=== PATIENT | female | born 1955 | race Caucasian/White ===

== ENCOUNTER 2016-06-21 14:10 | Inpatient (IN) | payer OTHER, MEDICAID ==
[2016-06-21] MEDS ORDERED: FUROSEMIDE 100 MG/10 ML VIAL IVP ONE (14:41)
[2016-06-21 14:42] LABS: % IMMATURE GRANULYOCYTES 0.7 % (0.0-1.1); ABSOLUTE IMMATURE GRANULOCYTES 0.06 10^3/uL (0.00-0.10); ADD DIFF? NO; ADD MORPH? NO; ADD SCAN? NO; ATYPICAL LYMPHOCYTE FLAG 0 (0-99); FRAGMENT RBC FLAG 0 (0-99); HEMATOCRIT 39.2 % (38.0-47.0); HEMOGLOBIN 12.8 g/dL (12.6-16.3); LEFT SHIFT FLG 0 (0-99); LIPEMIA HEMOLYSIS FLAG 80 (0-99); MEAN CELL HEMOGLOBIN 29.9 pg (27.9-34.1); MEAN CELL HEMOGLOBIN CONCENTR. 32.7 g/dL (32.4-36.7); MEAN CELL VOLUME 91.6 fL (81.5-99.8); PLATELET CLUMPS FLAG 0 (0-99); PLATELET COUNT 289 10^3/uL (150-400); RED BLOOD CELL COUNT 4.28 10^6/uL (4.18-5.33); RED CELL DISTRIBUTION WIDTH 15.7 % (11.5-15.2)
--- NOTE | 2016-06-21 14:43 | EDPHY ---
H & P Stated Complaint: 10lb wt gain, sob, hx CHF Time Seen by Provider: 06/21/16 14:32 - Personal History Current Tetanus Diphtheria and Acellular Pertussis (TDAP): Yes Tetanus Vaccine Date: 09/2013 - Medical/Surgical History Hx Asthma: Yes Hx Chronic Respiratory Disease: No Hx Diabetes: Yes Hx Cardiac Disease: Yes Hx Renal Disease: No Hx Cirrhosis: No Hx Alcoholism: No Hx HIV/AIDS: No Hx Splenectomy or Spleen Trauma: No Other PMH: Diabetes, Asthma, pulmonary hypertension. ,2 strokes age 38 and 44, lupus antigen that causes blood thickening (thought to have caused the strokes) , gluten intolerance, frequent falls - Social History Smoking Status: Never smoked Constitutional: Initial Vital Signs Temperature (C) 37.2 C 06/21/16 14:17 Heart Rate 81 06/21/16 14:17 Respiratory Rate 20 06/21/16 14:17 Blood Pressure 138/69 H 06/21/16 14:17 O2 Sat (%) 94 06/21/16 14:17 O2 Delivery Mode Nasal Cannula O2 (L/minute) 2 Allergies/Adverse Reactions: erythromycin base [Erythromycin Base] Allergy (Intermediate, Verified 06/21/16 14:20) Rash Penicillins Allergy (Intermediate, Verified 02/25/15 13:36) Rash Sulfa (Sulfonamide Antibiotics) [Sulfa(Sulfonamide Antibiotics)] Allergy ( Intermediate, Verified 02/25/15 13:36) Rash pineapple [Pineapple] Allergy (Verified 02/25/15 13:36) most abx except 3rd gen. cephlaspor Allergy (Intermediate, Uncoded 02/25/15 13: 36) narcotics Allergy (Uncoded 02/25/15 13:36) make her angry Medical Decision Making ED Course/Re-evaluation: CHIEF COMPLAINT: Shortness of breath, weight gain. HISTORY OF PRESENT ILLNESS: The patient is a 60-year-old female with a history of CHF who presents from her line walker for weight gain and shortness of breath. Her shortness of breath has been worsening over past few months and she now has to use more oxygen when now at rest. She has gained 10 pounds in the past 2 weeks. She denies chest pain or other complaints. She has been compliant with her Lasix 80mg BID and Spironolactone 25mg BID. She had a recent echocardiogram that was normal. She has no other complaints at this time. REVIEW OF SYSTEMS: A 10 point review of systems was performed and is negative with the exception of the elements mentioned in the history of present illness. PHYSICAL EXAM: HR, BP, O2 Sat, RR. Temp noted General Appearance: Alert, well hydrated, appropriate, and non-toxic appearing. Head: Atraumatic without scalp tenderness or obvious injury Eyes: Pupils equal, round, reactive to light and accommodation, EOMI, no trauma , no injection. Ears: Clear bilaterally, no perforation, normal landmarks Nose: Atraumatic, no rhinorrhea, clear. Throat: There is no erythema or exudates, no lesions, normal tonsils, mucus membranes moist. Neck: Supple, 2+ carotid upstroke, nontender, no lymphadenopathy. Respiratory: No retractions, no distress, no wheezes, and no accessory muscle use. Lungs are clear to auscultation bilaterally. Cardiovascular: Regular rate and rhythm, no murmurs, rubs, or gallops. Bilateral carotid, radial, dorsalis pedis, and posterior tibial pulses intact. Good capillary refill all extremities. Gastrointestinal: Abdomen is soft, nontender, non-distended, no masses, no rebound, no guarding, no peritoneal signs. Musculoskeletal: Normal active ROM of all extremities, atraumatic. Chronic venous stasis changes of legs. Neurological: Alert, appropriate, and interactive. The patient has normal DTRs and non-focal cranial nerves, motor, sensory, and cerebellar exam. Skin: No rashes, good turgor, no nodules on palpation. Past medical history: Diabetes, asthma, pulmonary hypertension, CHF, 2 CVAs. Past surgical history: Denies. Family history: N/A. Social history: Here alone. DIAGNOSTICS/PROCEDURES/CRITICAL CARE TIME: I reviewed the patient's imaging studies independently on the PACS system. My interpretation: CHF and cardiomegaly. See "Imaging" section above for radiologist reports. The 12 lead EKG was interpreted by myself. See hard copy and/or "tracemaster" electronic copy for interpretation. Sinus rhythm. DIFFERENTIAL DIAGNOSIS: The differential diagnosis for the patient's shortness of breath and hypoxemia included but was not limited to pneumonia, myocardial infarction, acute mountain sickness, high altitude pulmonary edema, congestive heart failure, and pulmonary embolus. MEDICAL DECISION MAKIN-year-old female with a history of CHF presents with recently worsening shortness of breath and 10 pound weight gain over the past 2 weeks. Specifically , over the past couple of days she has had worsening shortness of breath while lying flat. She has been compliant with her Lasix and Spironolactone, however her history of past kidney failure secondary to sepsis could be reducing the effectiveness of this. She has been hospitalized for this before and reports that IV Lasix caused her to lose 51 pounds over 3 days. The patient has been placed on a Nitroglycerin drip and 80mg IV Lasix administered. Hopefully this combination will allow her to pass her fluid well. Hospitalist paged. Chest x- ray ordered. Her blood pressure is 134/69 on arrival. I consulted with Dr. Angel , cardiology, who recommends Lasix drip. 1500: Consulted with Dr. Stern, hospitalist. She accepts admission. - Data Points Laboratory Results: Laboratory Results 06/21/16 14:23 06/21/16 14:23 06/21/16 06/21/16 06/21/16 14:30 14:23 14:23 WBC 8.93 10^3/uL 10^3/uL (3.80-9.50) RBC 4.28 10^6/uL 10^6/uL (4.18-5.33) Hgb 12.8 g/dL g/dL (12.6-16.3) Hct 39.2 % % (38.0-47.0) MCV 91.6 fL fL (81.5-99.8) MCH 29.9 pg pg (27.9-34.1) MCHC 32.7 g/dL g/dL (32.4-36.7) RDW 15.7 % H % (11.5-15.2) Plt Count 289 10^3/uL 10^3/uL (150-400) MPV 10.0 fL fL (8.7-11.7) Neut % (Auto) 72.2 % % (39.3-74.2) Lymph % (Auto) 17.4 % % (15.0-45.0) Glades % (Auto) 8.7 % % (4.5-13.0) Eos % (Auto) 0.9 % % (0.6-7.6) Baso % (Auto) 0.1 % L % (0.3-1.7) Nucleat RBC Rel Count 0.0 % % (0.0-0.2) Absolute Neuts (auto) 6.45 10^3/uL 10^3/uL (1.70-6.50) Absolute Lymphs (auto) 1.55 10^3/uL 10^3/uL (1.00-3.00) Absolute Monos (auto) 0.78 10^3/uL 10^3/uL (0.30-0.80) Absolute Eos (auto) 0.08 10^3/uL 10^3/uL (0.03-0.40) Absolute Basos (auto) 0.01 10^3/uL L 10^3/uL (0.02-0.10) Absolute Nucleated RBC 0.00 10^3/uL 10^3/uL (0-0.01) Immature Gran % 0.7 % % (0.0-1.1) Immature Gran # 0.06 10^3/uL 10^3/uL (0.00-0.10) PT 35.1 SEC H SEC (12.0-15.0) INR 3.43 H (0.83-1.16) Sodium 138 mEq/L mEq/L (134-144) Potassium 4.6 mEq/L mEq/L (3.5-5.2) Chloride 99 mEq/L mEq/L (97-110) Carbon Dioxide 25 mEq/l mEq/l (22-31) Anion Gap 14 mEq/L mEq/L (8-16) BUN 43 mg/dL H mg/dL (7-23) Creatinine 1.2 mg/dL H mg/dL (0.6-1.0) Estimated GFR 46 Glucose 257 mg/dL H mg/dL (70-100) Calcium 9.5 mg/dL mg/dL (8.5-10.4) Magnesium 2.0 mg/dL mg/dL (1.6-2.3) Total Bilirubin 0.7 mg/dL mg/dL (0.1-1.4) Conjugated Bilirubin 0.6 mg/dL H mg/dL (0.0-0.5) Unconjugated Bilirubin 0.1 mg/dL mg/dL (0.0-1.1) AST 32 IU/L IU/L (14-46) ALT 34 IU/L IU/L (9-52) Alkaline Phosphatase 89 IU/L IU/L (38-126) Troponin I < 0.012 ng/mL ng/mL (0-0.034) NT-Pro-B Natriuret Pep 102 pg/mL pg/mL (0-125) Total Protein 8.4 g/dL H g/dL (6.3-8.2) Albumin 4.3 g/dL g/dL (3.5-5.0) Lipase 148.0 IU/L IU/L (23-300) Medications Given: Discontinued Medications Furosemide (Lasix Injection) 80 mg IVP EDNOW ONE Stop: 06/21/16 14:42 Last Admin: 06/21/16 15:05 Dose: 80 mg Departure - Departure Disposition: [facility] Inpatient Acute Clinical Impression: Cardiomegaly CHF (congestive heart failure) Qualifiers: Congestive heart failure type: unspecified congestive heart failure type Congestive heart failure chronicity: chronic Qualified Code(s): I50.9 - Heart failure, unspecified Condition: Fair Report Scribed for: Jaime Nam Report Scribed by: Topher Brandon Date of Report: 06/21/16 Time of Report: 14:44
--- NOTE | 2016-06-21 14:52 | CPEKG ---
Heart Rate: 84 RR Interval: 714 P-R Interval: 192 QRSD Interval: 86 QT Interval: 364 QTC Interval: 431 P Toutle: 56 QRS Toutle: 21 T Wave Toutle: 57 EKG Severity - NORMAL ECG - EKG Impression: SINUS RHYTHM Electronically Signed By: Bro Duque 22-Jun-2016 08:59:39
[2016-06-21] MEDS ORDERED: NITROGLYCERIN/DEXTROSE 250 ML IV SCH (15:00)
[2016-06-21 15:10] LABS: ALANINE AMINOTRANSFERASE 34 IU/L (9-52); ALBUMIN 4.3 g/dL (3.5-5.0); ALKALINE PHOSPHATASE 89 IU/L (38-126); ANION GAP 14 mEq/L (8-16); ASPARTATE AMINOTRANSFERASE 32 IU/L (14-46); BILIRUBIN,TOTAL 0.7 mg/dL (0.1-1.4); BILIRUBIN-CONJUGATED 0.6 mg/dL (0.0-0.5); BILIRUBIN-UNCONJUGATED 0.1 mg/dL (0.0-1.1); CALCIUM 9.5 mg/dL (8.5-10.4); CARBON DIOXIDE 25 mEq/l (22-31); CHLORIDE 99 mEq/L (97-110); CREATININE 1.2 mg/dL (0.6-1.0); GLOMERULAR FILTRATION RATE 46; GLUCOSE 257 mg/dL (70-100); POTASSIUM 4.6 mEq/L (3.5-5.2); SODIUM 138 mEq/L (134-144); TOTAL PROTEIN 8.4 g/dL (6.3-8.2)
[2016-06-21] MEDS ORDERED: ONDANSETRON DISINTEGRATING 4 MG TAB PO PRN (15:21)
[2016-06-21] MEDS ORDERED: ONDANSETRON 4 MG/2 ML VIAL IVP PRN (15:21)
[2016-06-21 15:22] LABS: TROPONIN I < 0.012 ng/mL (0-0.034)
[2016-06-21 15:36] LABS: INR 3.43 (0.83-1.16); PROTIME(PATIENT) 35.1 SEC (12.0-15.0)
[2016-06-21] MEDS ORDERED: D5W IV SCH (16:00)
[2016-06-21] MEDS ORDERED: FUROSEMIDE IV SCH (16:00)
[2016-06-21] MEDS ORDERED: ALTEPLASE 2 MG VIAL IVP PRN (16:07)
[2016-06-21] MEDS ORDERED: D50W 25 GM/50 ML SYR IVP PRN (16:08)
[2016-06-21] MEDS ORDERED: IBUPROFEN 200 MG TAB PO PRN (16:17)
[2016-06-21] MEDS ORDERED: FUROSEMIDE 100 MG in D5W 100 ML IV SCH (17:00)
[2016-06-21] MEDS ORDERED: CEPHALEXIN 500 MG CAP PO PRN (17:21)
--- NOTE | 2016-06-21 17:28 | GHP ---
[f rep st] HISTORY AND PHYSICAL DATE OF ADMISSION: 06/21/2016 CHIEF COMPLAINT: Acutely decompensated diastolic heart failure. HISTORY OF PRESENT ILLNESS: Patient is a 60-year-old female with morbid obesity , diastolic heart failure, HEIDI who is admitted from [facility] for volume overload. The patient has gained over 60 pounds in the past 6 months; her dry weight is 310 pounds. She reports increased swelling in her legs and abdomen. Along with that, she has had left-sided chest pressure with a little bit of pain that occurs more with exertion. There is no associated radiation, sweats or nausea with this pressure. She has had to have increase of her oxygen at home. She normally uses 1 L at rest and 2 to 3 with exertion, has PND. Has chronically slept in a lounge chair due to orthopnea for the past year. Has not been compliant with her CPAP due to a nose sore. She had 2 open wounds on her right lower extremity recently that she has been dressing on her own. Denies fevers, chills or sweats. Echocardiogram 06/02 demonstrated normal LVEF. Lexiscan was negative for ischemia at that time as well. REVIEW OF SYSTEMS: I completed a 10-point review of systems, negative except as noted in HPI. PAST MEDICAL HISTORY: 1. History of positive lupus anticoagulant. 2. Stroke x2. 3. Arterial thrombosis. 4. Diabetes type 2. 5. Morbid obesity. 6. Paroxysmal atrial fibrillation. 7. Hyperlipidemia. 8. Hypertension. 9. HEIDI, has not been wearing CPAP. 10. Chronic hypoxemic respiratory failure 1 L at rest, 2 to 3 with exertion. 11. Trace MR, Trace TR. PAST SURGICAL HISTORY: 1. Tonsillectomy. 2. Appendectomy. 3. Gallbladder. SOCIAL HISTORY: 1. Lives in [place] with her who has a TBI and is disabled secondary to a car accident. 2. Has several daughters, youngest with cerebral palsy. 3. She uses a walker at home. FAMILY HISTORY: Mother passed of a mouth cancer. Paternal grandmother had an MT age 40 and a CABG in her 60s. Father with heart disease. MEDICATIONS: 1. Ibuprofen as needed. 2. Tylenol as needed. 3. Diltiazem 180 mg daily. 4. Keflex. 5. Aldactone 25 mg twice daily. 6. Losartan 100 mg daily. 7. Coumadin 7.5 on Wednesdays and 5 every other day. 8. Zyprexa 7.5 mg at bedtime. 9. Vitamin D3. 10. Paroxetine 40 mg daily. 11. Prilosec 20 mg daily. 12. Neurontin 300 mg three times daily. 13. Regular insulin 110 units twice daily. 14. Lasix 80 mg twice daily. PHYSICAL EXAMINATION: VITAL SIGNS: Temperature 37.2, Blood pressure 136/69, heart rate 80s, respiration 20, 94% on 2 L. GENERAL: Patient is morbidly obese , lying in bed, in no acute distress. HEENT: PERRLA, EOMI, oropharynx clear. CV: Regular rate and rhythm. No murmurs, gallops, or rubs. Anasarca lower extremities and abdomen. Difficult to discern JVD with thick neck. LUNGS: Mild crackles at bases. ABDOMEN: Distended, but nontender. Positive bowel sounds. : No suprapubic tenderness. MUSCULOSKELETAL: Moving all 4 extremities. SKIN: Warm and dry. Right lower extremity with 2 open wounds, one 3 x 4 cm, the other 1 x 2 cm with mild purulence, no surrounding erythema. NEURO: 2 through 12 intact. PSYCH: Alert and oriented x3. Very pleasant. LABORATORY DATA: Sodium 138, potassium 4.2, chloride 99, carbon dioxide 25, BUN 43, creatinine 1.2. Baseline is 1.1 to 1.3. Calcium 9.5, sugar is 257, conjugated bilirubin 0.6, unconjugated 0.1, troponin less than 0.012. BNP is 102, total protein 8.4. INR is 3.43, PT is 35. EKG personally reviewed by me. Normal sinus rhythm. Chest x-ray personally reviewed by me. Blunted costophrenic angles bilaterally. ASSESSMENT AND PLAN: 1. Acute on chronic diastolic heart failure: evaluated by Dr. Ndiaye in clinic today. Start a Lasix drip and admit to the PCU. Continue spironolactone and losartan. Daily weights and strict I's and O's. 2 L fluid restriction. Will likely cath in the next 4 to 5 days when more euvolemic. 2. Chronic hypoxemic respiratory failure: Secondary to obstructive sleep apnea. She is at her baseline right now. 3. Obstructive sleep apnea. Will write for CPAP. 4. Uncontrolled diabetes. Will continue her home insulin and add sliding scale insulin here. 5. Positive lupus anticoagulant: Prior strokes and arterial thrombosis. INR is at goal. Will bridge with Lovenox and hold Coumadin for likely catheterization in the next few days. 6. Hyperlipidemia, continue statin. 7. Paroxysmal atrial fibrillation, is currently in normal sinus rhythm. CHADS- VASc score greater than 6 on Coumadin. 8. Benign hypertension. Continue home medications. 9. Right lower extremity wounds, afebrile, no leukocytosis. We will have Wound Care evaluate. 10. Diet: Cardiac, 2 L fluid restriction. 11. Deep venous thrombosis prophylaxis on Coumadin. DISPOSITION: Patient warrants inpatient admission given acutely decompensated heart failure warrenting IV Lasix drip and serial labs. /[id number]/MODL MTDD
[2016-06-21] MEDS: INSULIN LISPRO 100 UNIT/ML SC SCH (17:57)
[2016-06-21] MEDS: INSULIN REGULAR HUMAN 100 UNIT/ML SC SCH (17:58)
[2016-06-21] MEDS ORDERED: INSULIN REGULAR HUMAN 110 UNIT SQ SCH (18:00)
[2016-06-21] MEDS: FUROSEMIDE 100 MG in D5W 100 ML IV SCH ×2 (18:09→21:21)
[2016-06-21] MEDS: PANTOPRAZOLE SODIUM 40 MG TAB PO SCH (20:55)
[2016-06-21] MEDS: OLANZapine 2.5 MG TAB PO SCH (20:55)
[2016-06-21] MEDS: CEPHALEXIN 500 MG CAP PO SCH (20:55)
[2016-06-21] MEDS: SPIRONOLACTONE 25 MG TAB PO SCH (20:55)
[2016-06-21] MEDS: ENOXAPARIN 80 MG/0.8 ML SYR SC SCH (20:56)
[2016-06-21] MEDS: ENOXAPARIN 100 MG/ML SYR SC SCH (20:56)
[2016-06-21] MEDS ORDERED: NON-FORMULARY NEW DRUG (Omeprazole [Prilosec 20 Mg] 20 MG) PO SCH (21:00)
[2016-06-21] MEDS ORDERED: ENOXAPARIN 150 MG/ML SYR SC SCH (21:00)
[2016-06-21] MEDS: GABAPENTIN 300 MG CAP PO SCH (21:03)
[2016-06-22] MEDS: FUROSEMIDE 100 MG in D5W 100 ML IV SCH ×6 (02:40→21:50)
[2016-06-22 06:27] LABS: INR 3.31 (0.83-1.16); PROTIME(PATIENT) 34.1 SEC (12.0-15.0)
[2016-06-22 07:53] LABS: ANION GAP 12 mEq/L (8-16); CALCIUM 9.3 mg/dL (8.5-10.4); CARBON DIOXIDE 28 mEq/l (22-31); CHLORIDE 99 mEq/L (97-110); CREATININE 1.1 mg/dL (0.6-1.0); GLOMERULAR FILTRATION RATE 50; GLUCOSE 228 mg/dL (70-100); POTASSIUM 4.1 mEq/L (3.5-5.2); SODIUM 139 mEq/L (134-144)
[2016-06-22] MEDS ORDERED: Herbals/Supplements -Info Only PO SCH (09:00)
[2016-06-22] MEDS: CEPHALEXIN 500 MG CAP PO SCH ×2 (09:05→20:14)
[2016-06-22] MEDS: DILTIAZEM CD 180 MG CAP PO SCH (09:05)
[2016-06-22] MEDS: GABAPENTIN 300 MG CAP PO SCH ×3 (09:05→20:14)
[2016-06-22] MEDS: SPIRONOLACTONE 25 MG TAB PO SCH ×2 (09:05→20:13)
[2016-06-22] MEDS: PARoxetine HCL 20 MG TAB PO SCH (09:06)
[2016-06-22] MEDS: ENOXAPARIN 100 MG/ML SYR SC SCH ×2 (09:06→20:20)
[2016-06-22] MEDS: LOSARTAN POTASSIUM 50 MG TAB PO SCH (09:06)
[2016-06-22] MEDS: CHOLECALCIFEROL VIT D3 1,000 UNITS TAB PO SCH (09:06)
[2016-06-22] MEDS: INSULIN REGULAR HUMAN 100 UNIT/ML SC SCH ×2 (09:07→18:05)
[2016-06-22] MEDS: ENOXAPARIN 80 MG/0.8 ML SYR SC SCH ×2 (09:07→20:21)
[2016-06-22] MEDS: INSULIN LISPRO 100 UNIT/ML SC SCH ×3 (09:07→18:05)
--- NOTE | 2016-06-22 09:27 | SOAPPROG ---
SOAP Progress Note Assessment/Plan: Assessment: 60 y/o woman with chronic morbid obesity and acute on chronic diastolic CHF mostly RV related. No more CP. PLAN: 1)increase Lasix gtt to 30mg/hr. 2)Diuril 500mg IV x one today. 3)rest of meds without changes. 4)Probably L/R cardiac cath sunday or Sunday via right arm once diuresed down to 310-320lbs. 5)daily BMP 6)thanks. 06/22/16 09:23 Subjective: feels okay. Still short of breath at rest. No more CP. Mild dizziness. No fevers or chills. Objective: Vital Signs Temp Pulse Resp BP Pulse Ox 37.3 C 79 12 145/66 H 94 06/22/16 08:56 06/22/16 08:56 06/22/16 08:56 06/22/16 08:56 06/22/16 08:56 Laboratory Results 06/22/16 06:10 06/21/16 06/22/16 06/23/16 05:59 05:59 05:59 Intake Total 1300 Output Total 3100 1800 Balance -1800 -1800 PT 34.1 SEC (12.0-15.0) H 06/22/16 06:10 INR 3.31 (0.83-1.16) H 06/22/16 06:10 Physical Exam - Physical Exam General Appearance: obese EENT: PERRL/EOMI Neck: non-tender Respiratory: crackles (bibasilar) Cardiac/Chest: regular rate, rhythm, JVD, systolic murmur Abdomen: organomegaly, ascites (probable ascites.) Skin: warm/dry Extremities: pedal edema, swelling Neuro/Psych: alert ICD10 Worksheet Patient Problems: Problems Problem Status Onset CHF (congestive heart failure) Acute Cardiomegaly Acute Afib - Atrial fibrillation Acute CHF (congestive heart failure) Acute Chest pain Acute
[2016-06-22] MEDS: STERILE WATER IVP SCH (10:56)
[2016-06-22] MEDS: CHLOROTHIAZIDE SODIUM IVP SCH (10:56)
--- NOTE | 2016-06-22 11:01 | HOSPPROG ---
Hospitalist Progress Note Assessment/Plan: # acute CHF, diastolic, mostly R sided sx - lasix gtt per Dr Angel - warned of ototoxicity - diuril per Dr Angel; cont aldactone - L/R cath when more euvolemic - cont losartan # lupus anticoagulant, hx arterial thrombosis - on warfarin - lovenox as bridge to cath, hold warfarin for now # DM2 - high insulin doses - glucs labile, follow for now without insulin changes # paroxysmal a-fib: sinus now; AC as above, dilt # HEIDI - CPAP # morbid obseity # FCFT ## chart reviewed CXR personally reviewed Subjective: breathing feels better; no hearing loss Objective: Vital Signs Temp Pulse Resp BP Pulse Ox 37.3 C 79 12 145/66 H 94 06/22/16 08:56 06/22/16 08:56 06/22/16 08:56 06/22/16 08:56 06/22/16 08:56 Laboratory Results 06/22/16 06:10 06/21/16 06/22/16 06/23/16 05:59 05:59 05:59 Intake Total 1300 Output Total 3100 2500 Balance -1800 -2500 PT 34.1 SEC (12.0-15.0) H 06/22/16 06:10 INR 3.31 (0.83-1.16) H 06/22/16 06:10 - Physical Exam Constitutional: obese Cardiovascular: regular rate and rhythym, systolic murmur, No irregularly irregular Respiratory: no respiratory distress, no rales or rhonchi, clear to auscultation Gastrointestinal: normoactive bowel sounds, soft, non-tender abdomen, no palpable masses ICD10 Worksheet Patient Problems: Problems Problem Status Onset CHF (congestive heart failure) Acute Cardiomegaly Acute Afib - Atrial fibrillation Acute CHF (congestive heart failure) Acute Chest pain Acute
[2016-06-22] MEDS: ACETAMINOPHEN 325 MG TAB PO PRN (16:17)
--- NOTE | 2016-06-22 16:57 | WOCRNPDOC ---
WOCRN Advanced Assessment Note - Skin Integrity Problem, Advanced Assess Right Lower Leg Venous Stasis Ulcer Dressing Type: Layne, Non-Bordered Foam Dressing Description: Shadowed Exudate Amount: Minimal Exudate Color: Yellow Exudate Characteristic(s): Dried Integumentary Issue Intervention: Dressing Removed (Provided DIYA Goodwin with supplies and instructions for dressing placement.) Natalie Wound Tissue: Lipodermatosclerosis, Hemosiderin Staining, Venous Dermatitis , Xerotic, Ankle Flare, Hair Loss, Dystrophic Natalie Wound Swelling: Mild Wound Bed Color: Red Wound Bed Constitution: Granulation Tissue (100%) Wound Edges: Irregular, Scarred, Thick Site Odor: Slight, Musky Site Measurement - Head-to-Toe Length X Width X Depth (cm): 9 x 6 x 0.3 Skin Integrity Problem Comment: Hx /chronic VSU per patient report: Has received care in past from "[facility] and [facility];" and helps her with dressing changes "at home, when he feels well enough." Wound presents now with completely clean, moist granulating tissue across a shallow wound bed, in the context of extremely dry, hyperkeratotic skin across bilateral LEs and feet. Provided DIYA Goodwin with supplies and instructions for care. Will follow up on 06/29.
[2016-06-22] MEDS: PANTOPRAZOLE SODIUM 40 MG TAB PO SCH (20:13)
[2016-06-22] MEDS: OLANZapine 2.5 MG TAB PO SCH (20:14)
[2016-06-23] MEDS: FUROSEMIDE 100 MG in D5W 100 ML IV SCH ×5 (01:15→14:34)
[2016-06-23 05:16] LABS: HEMATOCRIT 36.6 % (38.0-47.0); HEMOGLOBIN 12.1 g/dL (12.6-16.3); MEAN CELL HEMOGLOBIN 30.4 pg (27.9-34.1); MEAN CELL HEMOGLOBIN CONCENTR. 33.1 g/dL (32.4-36.7); RED BLOOD CELL COUNT 3.98 10^6/uL (4.18-5.33); RED CELL DISTRIBUTION WIDTH 15.5 % (11.5-15.2)
[2016-06-23 05:30] LABS: ANION GAP 13 mEq/L (8-16); CALCIUM 9.5 mg/dL (8.5-10.4); CARBON DIOXIDE 28 mEq/l (22-31); CHLORIDE 94 mEq/L (97-110); CREATININE 1.3 mg/dL (0.6-1.0); GLOMERULAR FILTRATION RATE 42; GLUCOSE 226 mg/dL (70-100); POTASSIUM 3.8 mEq/L (3.5-5.2); SODIUM 135 mEq/L (134-144)
[2016-06-23 05:32] LABS: INR 2.27 (0.83-1.16); PROTIME(PATIENT) 25.2 SEC (12.0-15.0)
[2016-06-23] MEDS: CHOLECALCIFEROL VIT D3 1,000 UNITS TAB PO SCH (08:02)
[2016-06-23] MEDS: GABAPENTIN 300 MG CAP PO SCH ×3 (08:03→20:40)
[2016-06-23] MEDS: SPIRONOLACTONE 25 MG TAB PO SCH ×2 (08:03→20:39)
[2016-06-23] MEDS: LOSARTAN POTASSIUM 50 MG TAB PO SCH (08:03)
[2016-06-23] MEDS: CEPHALEXIN 500 MG CAP PO SCH ×2 (08:04→20:40)
[2016-06-23] MEDS: PARoxetine HCL 20 MG TAB PO SCH (08:04)
[2016-06-23] MEDS: ENOXAPARIN 80 MG/0.8 ML SYR SC SCH ×2 (08:04→08:33)
[2016-06-23] MEDS: ENOXAPARIN 100 MG/ML SYR SC SCH ×2 (08:05→08:32)
[2016-06-23] MEDS: DILTIAZEM CD 180 MG CAP PO SCH (08:48)
[2016-06-23] MEDS: INSULIN LISPRO 100 UNIT/ML SC SCH ×3 (08:49→18:22)
[2016-06-23] MEDS: INSULIN REGULAR HUMAN 100 UNIT/ML SC SCH ×2 (08:50→18:24)
[2016-06-23] MEDS: STERILE WATER IVP SCH (08:55)
[2016-06-23] MEDS: CHLOROTHIAZIDE SODIUM IVP SCH (08:55)
--- NOTE | 2016-06-23 09:31 | SOAPPROG ---
SOAP Progress Note Assessment/Plan: Assessment: 60 y/o woman with chronic morbid obesity and acute on chronic diastolic CHF mostly RV related. No more CP. Weight on admission around 370lbs now 354lb. Reportedly from patient her dry weight is 310-320lbs. PLAN: 1)continue Lasix gtt 1-2 more days as serum creatinine and HCO2 allow. 2)okay to stop high dose Lovenox and start on heparin gtt. 3)Tentatively schedule for Left and right heart cath Sunday with IV heparin off for 4 hours beforehand. 06/23/16 09:28 Subjective: feels better. CP is gone. Less total body swelling sensation. Walked to bathroom without near syncope. No new complaints. Objective: Vital Signs Temp Pulse Resp BP Pulse Ox 36.9 C 86 14 113/62 96 06/23/16 07:32 06/23/16 07:32 06/23/16 07:32 06/23/16 07:32 06/23/16 07:32 Laboratory Results 06/23/16 04:30 06/23/16 04:30 06/22/16 06/23/16 06/24/16 05:59 05:59 05:59 Intake Total 1300 991.8 Output Total 3100 6950 Balance -1800 -5958.2 PT 25.2 SEC (12.0-15.0) H D 06/23/16 04:30 INR 2.27 (0.83-1.16) H 06/23/16 04:30 Physical Exam - Physical Exam General Appearance: alert, obese EENT: normal ENT inspection Neck: non-tender Respiratory: lungs clear Cardiac/Chest: regular rate, rhythm, JVD, systolic murmur Peripheral Pulses: 1+: femoral (R), femoral (L), dorsalis-pedis (R), dorsalis- pedis (L), 2+: carotid (R), carotid (L) Abdomen: soft, distended, No guarding Skin: warm/dry Extremities: pedal edema Neuro/Psych: alert ICD10 Worksheet Patient Problems: Problems Problem Status Onset CHF (congestive heart failure) Acute Cardiomegaly Acute Afib - Atrial fibrillation Acute CHF (congestive heart failure) Acute Chest pain Acute
--- NOTE | 2016-06-23 10:24 | HOSPPROG ---
Hospitalist Progress Note Assessment/Plan: Tigist Quinn is a 60 y/o female w morbid obesity who presented with acute on chronic CHF. She was admitted to the hospital from [facility] for being fluid overloaded. Today is my first encounter with the patient/chart reviewed. # acute CHF, diastolic, mostly R sided sx - Lasix gtt per Dr Angel - (added K protocol) - Diuril per Dr Angel; cont Aldactone - cont losartan - to get a L/R cath likely on Sunday - will need heparin gtt held 4 hours prior to procedure - chest xray shows mod pulm venous htn # lupus anticoagulant, hx arterial thrombosis - take warfarin (on HOLD) - was being bridged w Lovenox - now on heparin gtt -INR is therapeutic @ 2.27 #hx of 2 strokes due to the above -no residual # renal insufficiency -she is getting diuresed with Lasix gtt (30 mg/hour) -will dc treatment dose of Lovenox and initiate heparin gtt # DM2 - high insulin doses - glucoses are elevated, follow for now without insulin changes -change to ADA diet/ cardiac diet # paroxysmal a-fib: sinus now; AC as above, diltiazem # HEIDI - CPAP # morbid obesity with a BMI of 55 #Plan: dc Lovenox, heparin gtt, change to ADA diet. Subjective: Tigist has no complaints/ overall feeling better since being admitted. Objective: Vital Signs Temp Pulse Resp BP Pulse Ox 36.9 C 86 14 113/62 96 06/23/16 07:32 06/23/16 07:32 06/23/16 07:32 06/23/16 07:32 06/23/16 07:32 Laboratory Results 06/23/16 04:30 06/23/16 04:30 06/22/16 06/23/16 06/24/16 05:59 05:59 05:59 Intake Total 1300 991.8 Output Total 3100 6950 1900 Balance -1800 -5958.2 -1900 PT 25.2 SEC (12.0-15.0) H D 06/23/16 04:30 INR 2.27 (0.83-1.16) H 06/23/16 04:30 - Physical Exam Constitutional: chronically ill appearing, obese Eyes: PERRL Ears, Nose, Mouth, Throat: hearing normal Cardiovascular: regular rate and rhythym (distant heart sounds), edema ( bilateral lower extremity edema, also noted in abdomen. ) Respiratory: no respiratory distress Gastrointestinal: normoactive bowel sounds Skin: warm, other (skin on left lower ext dry, scaley, right leg in manda wrap) Musculoskeletal: generalized weakness Neurologic: AAOx3 Psychiatric: interacting appropriately, not anxious ICD10 Worksheet Patient Problems: Problems Problem Status Onset CHF (congestive heart failure) Acute Cardiomegaly Acute Afib - Atrial fibrillation Acute CHF (congestive heart failure) Acute Chest pain Acute
[2016-06-23] MEDS: HEPARIN/DEXTROSE 500 ML IV SCH (13:13)
[2016-06-23] MEDS: HEPARIN 10,000 UNIT/10 ML MDV IVP PRN (13:13)
[2016-06-23] MEDS ORDERED: PROTOCOL POTASSIUM 1 DOSE MISC PRN (16:21)
[2016-06-23] MEDS ORDERED: D5W IV SCH (16:30)
[2016-06-23] MEDS ORDERED: FUROSEMIDE IV SCH (16:30)
[2016-06-23] MEDS: ACETAMINOPHEN 325 MG TAB PO PRN (17:20)
[2016-06-23] MEDS: FUROSEMIDE IV SCH (17:25)
[2016-06-23] MEDS: D5W IV SCH (17:25)
[2016-06-23 19:35] LABS: POTASSIUM 3.8 mEq/L (3.5-5.2)
[2016-06-23] MEDS: OLANZapine 2.5 MG TAB PO SCH (20:39)
[2016-06-23] MEDS: PANTOPRAZOLE SODIUM 40 MG TAB PO SCH (20:39)
[2016-06-23] MEDS ORDERED: POTASSIUM CL 10 MEQ TAB PO ONE (20:43)
[2016-06-24] MEDS: FUROSEMIDE IV SCH ×2 (01:42→18:26)
[2016-06-24] MEDS: D5W IV SCH ×2 (01:42→18:26)
[2016-06-24] MEDS: HEPARIN/DEXTROSE 500 ML IV SCH ×2 (05:40→20:10)
[2016-06-24] MEDS: ACETAMINOPHEN 325 MG TAB PO PRN ×2 (05:40→21:14)
[2016-06-24 06:00] LABS: INR 1.58 (0.83-1.16); PROTIME(PATIENT) 18.9 SEC (12.0-15.0)
[2016-06-24 06:15] LABS: ANION GAP 15 mEq/L (8-16); CALCIUM 9.3 mg/dL (8.5-10.4); CARBON DIOXIDE 30 mEq/l (22-31); CHLORIDE 87 mEq/L (97-110); CREATININE 1.5 mg/dL (0.6-1.0); GLOMERULAR FILTRATION RATE 35; GLUCOSE 241 mg/dL (70-100); POTASSIUM 3.8 mEq/L (3.5-5.2); SODIUM 132 mEq/L (134-144)
--- NOTE | 2016-06-24 08:44 | PDCARPN ---
Cardiology Progress Note Chief Complaint: Patient reports continue feeling "puffy", but improved shortness of breath. Assessment/Plan: Assessment: 60-year-old female morbid obesity diastolic heart (mostly RV related), history of arterial thrombosis, history CVA, DM type 2, PAF, and HEIDI. Admitted on 2016 for 60 lb weight gain in last 6 months. Has been diuresed continuous Lasix drip and chlorthiazide. Admission weight 166.8 kilos, today 160 kilos. Today's lab showed of hyponatremia sodium at 132. Decreasing chloride level of 87, and elevation of BUN at 60 and creatinine 1.5. Telemetry monitoring showing sinus rhythm with no arrhythmias or pauses. Patient reports improvement in shortness breath. Denies of any chest pressure or pain. Plan: 1. Chronic diastolic heart failure: With elevation BUN creatinine, and mild hyponatremia. Will discontinue IV chlorthiazide, will also decrease Lasix trip rate down to 20 mg/hr. Continue oral Aldactone. Patient on potassium protocol. Repeat BMP and BNP in a.m.. Daily weights, strict I&Os. Plan on right and left heart catheterization Sunday. 2. PAF: Currently in a sinus rhythm. Continue on diltiazem p.o.. Taken off of warfarin therapy in preparation for cardiac catheterization, currently on heparin drip. Plan on discontinuing heparin 4 hours before cardiac catheterization. 3. Hyponatremia: Fluid restriction, DC chlorthiazide 06/24/16 08:42 Subjective: Patient reports no chest pressure, improvement in shortness of breath, denies of any palpitations, lightheadedness, near-syncope or syncopal events. Reports ongoing feeling of fluid retention. Reviewed/Discussed With: other (Dr Nowak) Objective: Vital Signs (8 Hrs) Temp Pulse Resp BP Pulse Ox 06/24/16 07:42 36.4 C 85 12 128/64 H 92 06/24/16 04:00 37.1 C 72 9 L 130/54 H 94 Intake/Output (24 Hrs) 06/23/16 06/24/16 06/25/16 05:59 05:59 05:59 Intake Total 991.8 2385 Output Total 6950 4100 700 Balance -5958.2 -4146 -700 Intake: Oral (ml) 725 1725 IV Infused (ml) 266.8 660 Furosemide 100 mg In D5w 30.8 100 ml @ 20 mls/hr IV CONT CRISTA Rx#:[id number] Furosemide 100 mg In D5w 236 100 ml @ 30 MG/HR 30 mls/ hr IV CONT CRISTA Rx#: [id number] Furosemide 250 mg In D5w 360 250 ml @ 30 MG/HR 30 mls/ hr IV CONT CRISTA Rx#: [id number] Heparin/Dextrose 500 ml @ 300 Per Protocol IV CONT CRISTA Rx#:[id number] Output: Urine (ml) 6950 4100 700 Toilet 6950 4100 700 Other: Weight 161.3 kg 160 kg Number of Voids Toilet 1 Number of Stools Toilet 1 1 Result Diagrams: 06/23/16 04:30 06/24/16 05:30 Cardiac Labs: Cardiac Lab Results (72 Hrs) 06/21/16 21:00 Troponin I < 0.012 - Physical Exam Constitutional: no apparent distress, obese (Morbidly) Ears, Nose, Mouth, Throat: moist mucous membranes Cardiovascular: regular rate and rhythm, no rubs, no gallops, systolic murmur ( 1 to 2/6 along left sternal border), jugular vein distention, pulses symmetric bilat Peripheral Pulses: 2+: carotid (R), carotid (L) Respiratory: other (Lungs are clear, diminished in bases bilateral, no rhonchi, rales, or wheezing noted. No accessary muscle use, no intercostal muscle retraction noted.) Gastrointestinal: normoactive bowel sounds, other (Obese, round.) Skin: warm, No no edema (+3 peripheral edema bilateral lower extremities to thigh.) Neurologic: AAOx3 Psychiatric: cooperative, interactive, following commands ICD10 Worksheet Patient Problems: Problems Problem Status Onset CHF (congestive heart failure) Acute Cardiomegaly Acute Afib - Atrial fibrillation Acute CHF (congestive heart failure) Acute Chest pain Acute
[2016-06-24] MEDS: INSULIN LISPRO 100 UNIT/ML SC SCH ×3 (09:19→18:47)
[2016-06-24] MEDS: INSULIN REGULAR HUMAN 100 UNIT/ML SC SCH ×2 (09:22→18:48)
[2016-06-24] MEDS: CHOLECALCIFEROL VIT D3 1,000 UNITS TAB PO SCH (09:26)
[2016-06-24] MEDS: CEPHALEXIN 500 MG CAP PO SCH ×2 (09:26→19:54)
[2016-06-24] MEDS: SPIRONOLACTONE 25 MG TAB PO SCH ×2 (09:27→19:54)
[2016-06-24] MEDS: PARoxetine HCL 20 MG TAB PO SCH (09:27)
[2016-06-24] MEDS: DILTIAZEM CD 180 MG CAP PO SCH (09:28)
[2016-06-24] MEDS: GABAPENTIN 300 MG CAP PO SCH ×3 (09:28→21:14)
[2016-06-24] MEDS: LOSARTAN POTASSIUM 50 MG TAB PO SCH (09:28)
[2016-06-24] MEDS ORDERED: POTASSIUM CL 10 MEQ TAB PO ONE (09:30)
[2016-06-24] MEDS: FUROSEMIDE 100 MG in D5W 100 ML IV SCH ×2 (09:42→13:47)
--- NOTE | 2016-06-24 15:35 | HOSPPROG ---
Hospitalist Progress Note Assessment/Plan: Tigist Quinn is a 60 y/o female w morbid obesity who presented with acute on chronic CHF. She was admitted to the hospital from [facility] for being fluid overloaded. Today is my first encounter with the patient/chart reviewed. acute CHF, diastolic, mostly R sided sx - Lasix gtt per Dr Angel - (added K protocol) - Diuril per Dr Angel; cont Aldactone - cont losartan - to get a L/R cath likely on Sunday - will need heparin gtt held 4 hours prior to procedure - chest xray shows mod pulm venous htn lupus anticoagulant, hx arterial thrombosis - take warfarin (on HOLD) - was being bridged w Lovenox - now on heparin gtt -INR is subtherapeutic @ 1.6 hx of 2 strokes due to the above -no residual renal insufficiency -she is getting diuresed with Lasix gtt, no down to 20 mg/hour DM2 - high insulin doses - glucoses are elevated, follow for now without insulin changes -change to ADA diet/ cardiac diet paroxysmal a-fib: sinus now; AC as above, diltiazem HEIDI - CPAP morbid obesity with a BMI of 55 dispo: inpatient Subjective: 1700 neg overnight. case discussed w madina emanuel, cardiology MATERIAL DISPATCHER. tele: no events (interp by me) Objective: Vital Signs Temp Pulse Resp BP Pulse Ox 36.4 C 85 12 128/64 H 92 06/24/16 07:42 06/24/16 07:42 06/24/16 07:42 06/24/16 07:42 06/24/16 07:42 Laboratory Results 06/23/16 04:30 06/24/16 05:30 06/23/16 06/24/16 06/25/16 05:59 05:59 05:59 Intake Total 991.8 2385 Output Total 6950 4100 700 Balance -5958.2 -1715 -700 PT 18.9 SEC (12.0-15.0) H 06/24/16 05:30 INR 1.58 (0.83-1.16) H 06/24/16 05:30 - Physical Exam Constitutional: no apparent distress, appears nourished Eyes: PERRL, anicteric sclera Ears, Nose, Mouth, Throat: moist mucous membranes, hearing normal Cardiovascular: regular rate and rhythym, no murmur, rub, or gallop, edema, other (anasarca) Respiratory: no respiratory distress, no rales or rhonchi Gastrointestinal: normoactive bowel sounds, soft, non-tender abdomen Genitourinary: No gaitan in urethra Skin: warm, normal color Musculoskeletal: full muscle strength, no muscle tenderness Neurologic: AAOx3, sensation intact bilaterally Psychiatric: interacting appropriately, not anxious Lymph, Heme, Immunologic: no cervical LAD ICD10 Worksheet Patient Problems: Problems Problem Status Onset CHF (congestive heart failure) Acute Cardiomegaly Acute Afib - Atrial fibrillation Acute CHF (congestive heart failure) Acute Chest pain Acute
[2016-06-24 18:09] LABS: MAGNESIUM 1.6 mg/dL (1.6-2.3); POTASSIUM 4.4 mEq/L (3.5-5.2)
[2016-06-24] MEDS: HEPARIN 10,000 UNIT/10 ML MDV IVP PRN (18:19)
[2016-06-24] MEDS ORDERED: MAGNESIUM SULF 1 GM/DEXTROSE 100 ML IV ONE (19:41)
[2016-06-24] MEDS: OLANZapine 2.5 MG TAB PO SCH (19:54)
[2016-06-24] MEDS: PANTOPRAZOLE SODIUM 40 MG TAB PO SCH (19:54)
[2016-06-25] MEDS: HEPARIN 10,000 UNIT/10 ML MDV IVP PRN ×2 (01:23→23:10)
[2016-06-25 07:12] LABS: ANION GAP 17 mEq/L (8-16); CALCIUM 8.8 mg/dL (8.5-10.4); CARBON DIOXIDE 27 mEq/l (22-31); CHLORIDE 85 mEq/L (97-110); CREATININE 2.1 mg/dL (0.6-1.0); GLOMERULAR FILTRATION RATE 24; GLUCOSE 294 mg/dL (70-100); POTASSIUM 4.2 mEq/L (3.5-5.2); SODIUM 129 mEq/L (134-144)
[2016-06-25] MEDS: D5W IV SCH (08:25)
[2016-06-25] MEDS: FUROSEMIDE IV SCH (08:25)
[2016-06-25] MEDS: CHOLECALCIFEROL VIT D3 1,000 UNITS TAB PO SCH (08:27)
[2016-06-25] MEDS: DILTIAZEM CD 180 MG CAP PO SCH (08:27)
[2016-06-25] MEDS: CEPHALEXIN 500 MG CAP PO SCH ×2 (08:27→21:24)
[2016-06-25] MEDS: LOSARTAN POTASSIUM 50 MG TAB PO SCH (08:28)
[2016-06-25] MEDS: GABAPENTIN 300 MG CAP PO SCH ×3 (08:28→21:24)
[2016-06-25] MEDS: PARoxetine HCL 20 MG TAB PO SCH (08:28)
[2016-06-25] MEDS: SPIRONOLACTONE 25 MG TAB PO SCH ×2 (08:28→21:24)
[2016-06-25] MEDS: INSULIN LISPRO 100 UNIT/ML SC SCH ×3 (09:53→19:58)
[2016-06-25] MEDS: INSULIN REGULAR HUMAN 100 UNIT/ML SC SCH ×2 (10:01→19:57)
--- NOTE | 2016-06-25 10:25 | PDCARPN ---
Cardiology Progress Note Assessment/Plan: 60 year-old female with morbid obesity, chronic diastolic heart failure (mostly right-sided/cor pulmonale), history of arterial thrombosis, history of CVA, DM type 2, PAF, and HEIDI. Admitted 06/21/2016 for 60 lb weight gain in last 6 months. Started on continuous Lasix drip with boluses of chlorothiazide. Admission weight 166.8 kg. Admission BUN/creat 14 and 1.2. Admissionn sodium 138. 1. Chronic Diastolic Heart Failure: Diuresing well but BUN and creatinine rising and hyponatremia worsening. IV chlorothiazide DCed, Lasix drip decreased to 20 mg/hr yesterday. Decrease Lasix drip to 10 mg/Hr. Continue oral Aldactone. Patient on potassium protocol. Follow electrolytes and renal function closely. Daily weights, strict I&Os. Right and Left heart cath this week when renal function improves. 2. Paroxysmal Atrial Fibrillation: Maintaining sinus rhythm. Continue on PO diltiazem. Warfarin on hold in preparation for cardiac catheterization; currently on heparin drip. Plan on discontinuing heparin 4 hours before cardiac catheterization. 3. Acute Kidney Injury: creat up to 2.1 today. As above, decrease Lasix drip. 4. Hyponatremia: Sodium 129 today. Fluid restriction 06/25/16 10:29 Subjective: Less tired than yesterday. No chest pain. Objective: Vital Signs (8 Hrs) Temp Pulse Resp BP Pulse Ox 06/25/16 07:24 36.8 C 72 14 115/60 95 06/25/16 04:00 36.5 C 74 16 122/74 H 95 Intake/Output (24 Hrs) 06/24/16 06/25/16 06/26/16 05:59 05:59 05:59 Intake Total 2385 950 Output Total 4100 2900 Balance -1715 -1950 Intake: Oral (ml) 1725 950 IV Infused (ml) 660 Furosemide 250 mg In D5w 360 250 ml @ 30 MG/HR 30 mls/ hr IV CONT CRISTA Rx#: [id number] Heparin/Dextrose 500 ml @ 300 Per Protocol IV CONT CRISTA Rx#:[id number] Output: Urine (ml) 4100 2900 Toilet 4100 2900 Other: Weight 160 kg 160.3 kg Number of Voids Toilet 1 Number of Stools Toilet 1 Result Diagrams: 06/25/16 06:30 06/25/16 06:30 - Physical Exam Constitutional: obese Eyes: anicteric sclera Ears, Nose, Mouth, Throat: moist mucous membranes Cardiovascular: regular rate and rhythm, no murmurs, no gallops Respiratory: clear to auscultate bilat Gastrointestinal: normoactive bowel sounds, no tenderness, no masses Skin: other (3+ to 4+ bilateral LE edema with chronic venous stasis changes) Neurologic: AAOx3 Psychiatric: not anxious ICD10 Worksheet Patient Problems: Problems Problem Status Onset CHF (congestive heart failure) Acute Cardiomegaly Acute Afib - Atrial fibrillation Acute CHF (congestive heart failure) Acute Chest pain Acute
[2016-06-25] MEDS: HEPARIN/DEXTROSE 500 ML IV SCH (11:19)
--- NOTE | 2016-06-25 13:02 | HOSPPROG ---
Hospitalist Progress Note Assessment/Plan: Tigist Quinn is a 60 y/o female w morbid obesity who presented with acute on chronic CHF. She was admitted to the hospital from [facility] for being fluid overloaded. Today is my first encounter with the patient/chart reviewed. acute CHF, diastolic, mostly R sided sx - Lasix gtt decreased to 10mg/hr given rising cr 13 L neg thus far lupus anticoagulant, hx arterial thrombosis - take warfarin (on HOLD) - was being bridged w Lovenox - now on heparin gtt follow inr daily hyponatremia: thiazide discontinued lasix drip decreased fluid restriction follow daily hx of 2 strokes due to the above -no residual renal insufficiency -she is getting diuresed with Lasix gtt, no down to 10 mg/hour remains total body overloaded (massively) but suspect some intravascular volume depletion DM2 - high insulin doses - glucoses are elevated, follow for now without insulin changes -change to ADA diet/ cardiac diet unusual insulin regiment noted kelflex therapy: this is prophyaxis for recurrent cellulitis that may actually be venous stasis paroxysmal a-fib: sinus now; AC as above, diltiazem HEIDI - CPAP morbid obesity with a BMI of 55 dispo: inpatient Subjective: tele: no events (interp by me). case d/w dr paez Objective: Vital Signs Temp Pulse Resp BP Pulse Ox 36.3 C 87 16 115/77 95 06/25/16 11:51 06/25/16 11:51 06/25/16 11:51 06/25/16 11:51 06/25/16 11:51 Laboratory Results 06/25/16 06:30 06/25/16 06:30 06/24/16 06/25/16 06/26/16 05:59 05:59 05:59 Intake Total 2385 950 Output Total 4100 2900 1450 Balance -1715 -1950 -1450 PT 18.9 SEC (12.0-15.0) H 06/24/16 05:30 INR 1.58 (0.83-1.16) H 06/24/16 05:30 - Physical Exam Constitutional: no apparent distress, appears nourished Eyes: PERRL, anicteric sclera Ears, Nose, Mouth, Throat: moist mucous membranes, hearing normal Cardiovascular: regular rate and rhythym, no murmur, rub, or gallop, systolic murmur, No irregularly irregular Respiratory: no respiratory distress, no rales or rhonchi, clear to auscultation Gastrointestinal: normoactive bowel sounds, soft, non-tender abdomen Genitourinary: No gaitan in urethra Skin: warm, normal color, other (chronic venous stasis changes. bandages on R leg) Musculoskeletal: full muscle strength, no muscle tenderness Neurologic: AAOx3 ICD10 Worksheet Patient Problems: Problems Problem Status Onset CHF (congestive heart failure) Acute Cardiomegaly Acute Afib - Atrial fibrillation Acute CHF (congestive heart failure) Acute Chest pain Acute
[2016-06-25] MEDS: OLANZapine 2.5 MG TAB PO SCH (21:23)
[2016-06-25] MEDS: ACETAMINOPHEN 325 MG TAB PO PRN (21:25)
[2016-06-25] MEDS: PANTOPRAZOLE SODIUM 40 MG TAB PO SCH (21:25)
[2016-06-25 23:36] LABS: POTASSIUM 4.1 mEq/L (3.5-5.2)
[2016-06-26 05:08] LABS: INR 1.19 (0.83-1.16); PROTIME(PATIENT) 15.1 SEC (12.0-15.0)
[2016-06-26 06:10] LABS: ANION GAP 13 mEq/L (8-16); CALCIUM 8.8 mg/dL (8.5-10.4); CARBON DIOXIDE 29 mEq/l (22-31); CHLORIDE 90 mEq/L (97-110); CREATININE 2.6 mg/dL (0.6-1.0); GLOMERULAR FILTRATION RATE 19; GLUCOSE 185 mg/dL (70-100); MAGNESIUM 2.3 mg/dL (1.6-2.3); POTASSIUM 4.4 mEq/L (3.5-5.2); SODIUM 132 mEq/L (134-144)
[2016-06-26] MEDS: CEPHALEXIN 500 MG CAP PO SCH ×2 (09:14→20:20)
[2016-06-26] MEDS: GABAPENTIN 300 MG CAP PO SCH ×3 (09:14→20:20)
[2016-06-26] MEDS: PARoxetine HCL 20 MG TAB PO SCH (09:14)
[2016-06-26] MEDS: CHOLECALCIFEROL VIT D3 1,000 UNITS TAB PO SCH (09:14)
[2016-06-26] MEDS: DILTIAZEM CD 180 MG CAP PO SCH (09:15)
[2016-06-26] MEDS: INSULIN REGULAR HUMAN 100 UNIT/ML SC SCH ×2 (09:15→17:59)
[2016-06-26] MEDS: INSULIN LISPRO 100 UNIT/ML SC SCH ×3 (09:16→17:59)
[2016-06-26] MEDS ORDERED: NS 1,000 ML IV SCH (09:45)
[2016-06-26] MEDS: HEPARIN/DEXTROSE 500 ML IV SCH ×2 (10:19→21:43)
--- NOTE | 2016-06-26 11:03 | SOAPPROG ---
SOAP Progress Note Assessment/Plan: Assessment: 60 y/o woman with chronic morbid obesity and acute on chronic diastolic CHF mostly RV related. No more CP. Weight on admission around 370lbs now 354lb. She reports previous dry weight after IV diuresis a year ago was 310lbs. I do not think that will happen this time. Daily serum creatinine suggests euvolemic or a bit overdiuresed at current weight. PLAN: 1)stop Losartan, Aldactone, Lasix gtt and prn Motrin. 2)IVF: NS 8475-8332 cc IV today and recheck serum BMP tonight and in AM 3)L/R cardiac cath probably from arm once serum creatinine < 1.8. Maybe on Sunday or Sunday with hopes home or Sunday. 4)overall needs to start serious diet plan as her morbid obesity is becoming life threatening. 06/26/16 11:00 Subjective: no longer rest shortness of breath. DICKERSON at 5-10ft. Denies CP, near syncope. Still 4+ leg edema. Denies fevers or chills or abdominal pain. Objective: Vital Signs Temp Pulse Resp BP Pulse Ox 37.1 C 86 13 112/60 95 06/26/16 04:00 06/26/16 04:00 06/26/16 04:00 06/26/16 04:00 06/26/16 04:00 Laboratory Results 06/25/16 06:30 06/26/16 04:40 06/25/16 06/26/16 06/27/16 05:59 05:59 05:59 Intake Total 950 2047 Output Total 2900 2750 Balance -1950 -703 PT 15.1 SEC (12.0-15.0) H 06/26/16 04:40 INR 1.19 (0.83-1.16) H 06/26/16 04:40 Physical Exam - Physical Exam General Appearance: alert, obese EENT: PERRL/EOMI Neck: non-tender Respiratory: lungs clear Cardiac/Chest: regular rate, rhythm, JVD, systolic murmur, No gallop Peripheral Pulses: 1+: femoral (R), femoral (L), dorsalis-pedis (R), dorsalis- pedis (L), 2+: carotid (R), carotid (L) Abdomen: non-tender, distended, No guarding Skin: warm/dry Extremities: pedal edema Neuro/Psych: alert ICD10 Worksheet Patient Problems: Problems Problem Status Onset CHF (congestive heart failure) Acute Cardiomegaly Acute Afib - Atrial fibrillation Acute CHF (congestive heart failure) Acute Chest pain Acute
--- NOTE | 2016-06-26 14:59 | ECHO ---
[id number] + + [address] : : [place] [address] : : [phone] + Adult Echocardiographic Report + ----+ :Name: LEVI ROJASgiovannialivia Date: 06/26/2016 10:25 AM : : Hospital Admission Number: [id number] Location: 221: :: 1955 Gender: Female Height: 67 in : :Age: 60 yrs Race: WH Weight: 354 lb : :Reason For Study: Decompensated CHF and ARF/reevaluate :VEF : :amd RVEF BSA: 2.6 meters2 : + ----+ Doppler Measurements \T\ Calculations TR max becky: 345.0 cm/sec TR max P.6 mmHg RAP systole: 10.0 mmHg RVSP(TR): 57.6 mmHg Left Ventricle There is mild concentric left ventricular hypertrophy. Ejection Fraction = 70-75%. Hyperdynamic LV (Slight LVOT gradient). Right Ventricle The right ventricular systolic function is normal. Tricuspid Valve Right ventricular systolic pressure is 58mmHg. There is Doppler evidence for mild to moderate pulmonary hypertension. Conclusion Limited 2-D echo. There is mild concentric left ventricular hypertrophy. Ejection Fraction = 70-75%. Hyperdynamic LV (Slight LVOT gradient). The right ventricular systolic function is normal. Right ventricular systolic pressure is 58mmHg. There is Doppler evidence for mild to moderate pulmonary hypertension. Final Reading Physician: Vitaliy Granados signed on 06/26/2016 02:58 PM Ordering Physician: Esteban Angel Performed By: Isi Dalal RDCS
--- NOTE | 2016-06-26 16:19 | HOSPPROG ---
Hospitalist Progress Note Assessment/Plan: Tigist Quinn is a 60 y/o female w morbid obesity who presented with acute on chronic CHF. She was admitted to the hospital from [facility] for being fluid overloaded. Today is my first encounter with the patient/chart reviewed. acute CHF, diastolic, mostly R sided sx - Lasix gtt on hold given rising cr 14 L neg thus far lupus anticoagulant, hx arterial thrombosis - take warfarin (on HOLD) - was being bridged w Lovenox - now on heparin gtt follow inr daily hyponatremia: thiazide discontinued lasix drip decreased up today follow daily hx of 2 strokes due to the above -no residual renal insufficiency hold diuretics X 1 day, arb and nsaids also on hold DM2 - high insulin doses - glucoses are elevated, follow for now without insulin changes -change to ADA diet/ cardiac diet unusual insulin regiment noted kelflex therapy: this is prophyaxis for recurrent cellulitis that may actually be venous stasis paroxysmal a-fib: sinus now; AC as above, diltiazem HEIDI - CPAP morbid obesity with a BMI of 55 dispo: inpatient Subjective: case d/w dr arguello. tele: no events (interp by me) Objective: Vital Signs Temp Pulse Resp BP Pulse Ox 37.7 C 83 14 144/54 H 98 06/26/16 15:53 06/26/16 15:53 06/26/16 15:53 06/26/16 15:53 06/26/16 15:53 Laboratory Results 06/25/16 06:30 06/26/16 04:40 06/25/16 06/26/16 06/27/16 05:59 05:59 05:59 Intake Total 950 2047 Output Total 2900 2750 Balance -1950 -703 PT 15.1 SEC (12.0-15.0) H 06/26/16 04:40 INR 1.19 (0.83-1.16) H 06/26/16 04:40 - Physical Exam Constitutional: no apparent distress, appears nourished Eyes: PERRL, anicteric sclera Ears, Nose, Mouth, Throat: moist mucous membranes, hearing normal Cardiovascular: regular rate and rhythym, no murmur, rub, or gallop Respiratory: no respiratory distress, no rales or rhonchi Gastrointestinal: normoactive bowel sounds, soft, non-tender abdomen Genitourinary: No gaitan in urethra Skin: warm, normal color Musculoskeletal: full muscle strength, no muscle tenderness Neurologic: AAOx3, sensation intact bilaterally ICD10 Worksheet Patient Problems: Problems Problem Status Onset CHF (congestive heart failure) Acute Cardiomegaly Acute Afib - Atrial fibrillation Acute CHF (congestive heart failure) Acute Chest pain Acute
[2016-06-26 16:39] LABS: ANION GAP 12 mEq/L (8-16); CALCIUM 8.7 mg/dL (8.5-10.4); CARBON DIOXIDE 26 mEq/l (22-31); CHLORIDE 91 mEq/L (97-110); CREATININE 1.8 mg/dL (0.6-1.0); GLOMERULAR FILTRATION RATE 29; GLUCOSE 354 mg/dL (70-100); POTASSIUM 4.9 mEq/L (3.5-5.2); SODIUM 129 mEq/L (134-144)
[2016-06-26 19:35] LABS: POTASSIUM 4.3 mEq/L (3.5-5.2)
[2016-06-26] MEDS: OLANZapine 2.5 MG TAB PO SCH (20:20)
[2016-06-26] MEDS: PANTOPRAZOLE SODIUM 40 MG TAB PO SCH (20:20)
[2016-06-26] MEDS: ACETAMINOPHEN 325 MG TAB PO PRN (21:42)
[2016-06-27 05:59] LABS: INR 1.15 (0.83-1.16); PROTIME(PATIENT) 14.7 SEC (12.0-15.0)
[2016-06-27 06:30] LABS: ANION GAP 12 mEq/L (8-16); CALCIUM 8.9 mg/dL (8.5-10.4); CARBON DIOXIDE 24 mEq/l (22-31); CHLORIDE 94 mEq/L (97-110); CREATININE 1.3 mg/dL (0.6-1.0); GLOMERULAR FILTRATION RATE 42; GLUCOSE 294 mg/dL (70-100); MAGNESIUM 2.3 mg/dL (1.6-2.3); POTASSIUM 4.8 mEq/L (3.5-5.2); SODIUM 130 mEq/L (134-144)
[2016-06-27] MEDS: GABAPENTIN 300 MG CAP PO SCH ×3 (08:42→21:08)
[2016-06-27] MEDS: DILTIAZEM CD 180 MG CAP PO SCH (08:42)
[2016-06-27] MEDS: CHOLECALCIFEROL VIT D3 1,000 UNITS TAB PO SCH (08:42)
[2016-06-27] MEDS: CEPHALEXIN 500 MG CAP PO SCH ×2 (08:42→21:08)
[2016-06-27] MEDS: PARoxetine HCL 20 MG TAB PO SCH (08:42)
[2016-06-27] MEDS: INSULIN LISPRO 100 UNIT/ML SC SCH ×4 (08:44→21:13)
[2016-06-27] MEDS ORDERED: diphenhydrAMINE 25 MG CAP PO ONE (09:14)
[2016-06-27] MEDS ORDERED: ASPIRIN EC 325 MG TAB PO ONE (09:14)
[2016-06-27] MEDS ORDERED: DIAZEPAM 5 MG TAB PO ONE (09:14)
[2016-06-27] MEDS ORDERED: TEMAZEPAM 15 MG CAP PO PRN (09:14)
[2016-06-27] MEDS ORDERED: NITROGLYCERIN 0.4 MG BTL SL PRN (09:14)
[2016-06-27] MEDS: INSULIN REGULAR HUMAN 100 UNIT/ML SC SCH ×2 (09:23→18:24)
[2016-06-27] MEDS ORDERED: LIDOCAINE 1% 30 ML SDV ONE (10:20)
[2016-06-27] MEDS ORDERED: HEPARIN 10,000 UNIT/10 ML MDV ONE (10:21)
[2016-06-27] MEDS ORDERED: VERAPAMIL 5 MG/2 ML VIAL ONE (10:21)
[2016-06-27] MEDS ORDERED: MIDAZOLAM 2 MG/2 ML VIAL ONE (10:53)
[2016-06-27] MEDS ORDERED: IOPAMIDOL (ISOVUE 370) 100 ML BTL IV ONE (10:54)
[2016-06-27] MEDS ORDERED: ATROPINE SULFATE 1 MG/10 ML SYR IVP PRN (12:06)
--- NOTE | 2016-06-27 12:11 | PDDXCAT ---
Diagnostic Cath Note - . Date: 06/27/16 Director Data: Mike Indication: other (Chronic diastolic CHF and cor pulmonale; Risk factors for CAD ) - Procedure Access: right groin Procedure: left heart catheterization, coronary angiography, left ventriculogram , right heart catheterization - Materials Left Heart Cath size: 6F Left Heart Cath materials: standard multipack (JL4, JR4, pigtail) Right Heart Cath size: 7F Right Heart Cath materials: PWP catheter - Findings-Left Heart Catheterization LM: Normal. LAD: Minimal irregularites. LCX: Minimal irregularities. RCA: Minimal irregularities. EDP: 27 mmHg LVEF: 55% Wall motion: Normal - Findings-Right Heart Catheterization RA: 22 mmHg (CVP 22 mmHg) RV: 70/16 mmHg PA: 68/30/42 mmHg O2 sat 72.0% PAOP: 28 mmHg AO: 156/26 mmHg O2 sat 93.7% CO: 9.06 L/min CI: 3.5 L/min/sq mtr Complications: None Estimated blood loss: <50ml Closure method: Angioseal Assessment: 1) Normal LV systolic function. 2) Minimla coronary atherosclerosis. 3) Severe pulmonary hypertension. Patient Problems: Problems Problem Status Onset CHF (congestive heart failure) Acute Cardiomegaly Acute Afib - Atrial fibrillation Acute CHF (congestive heart failure) Acute Chest pain Acute
--- NOTE | 2016-06-27 12:24 | PDCARPN ---
Cardiology Progress Note Assessment/Plan: 60 year-old female with morbid obesity, chronic diastolic heart failure (mostly right-sided/cor pulmonale), history of arterial thrombosis, history of CVA, DM type 2, PAF, and HEIDI. Admitted 06/21/2016 for 60 lb weight gain in last 6 months. Started on continuous Lasix drip with boluses of chlorothiazide. Admission weight 166.8 kg. Admission BUN/creat 14 and 1.2. Admissionn sodium 138. 1. Chronic Diastolic Heart Failure: Initially diuresed well but BUN and creatinine rasheed significantly. Diuretics, ARB, and NSAIDS held and IV fluids given yesterday. Right and Left heart cath today showed normal LV systolic function, minimal coronary atherosclerosis, significant pulmonary hypertension, and elevated CVP and PCWP/LVEDP c/w intravascular volume overload. Will wait to see how renal function tolerates today's contrast load before resuming diuresis. 2. Paroxysmal Atrial Fibrillation: Maintaining sinus rhythm. Continue on PO diltiazem. Warfarin on hold for cardiac catheterization. Will resume heparin drip 4 hours after cardiac catheterization. 3. Acute Kidney Injury: creat down to 1.3 today. As above, diuretics on hold. 4. Hyponatremia: Sodium 130 today. Fluid restriction 06/27/16 12:28 Subjective: No complaints. Reviewed/Discussed With: family Objective: Vital Signs (8 Hrs) Temp Pulse Resp BP Pulse Ox 06/27/16 07:52 36.4 C 70 14 146/59 H 97 Intake/Output (24 Hrs) 06/26/16 06/27/16 06/28/16 05:59 05:59 05:59 Intake Total 2047 3752 Output Total 2750 3000 Balance -703 752 Intake: Oral (ml) 400 1600 IV Infused (ml) 1647 2152 Furosemide 250 mg In D5w 620 20 250 ml @ 10 MG/HR 10 mls/ hr IV CONT CRISTA Rx#: [id number] Heparin/Dextrose 500 ml @ 1027 1132 Per Protocol IV CONT CRISTA Rx#:[id number] Ns 1,000 ml @ 200 mls/hr 1000 IV CONT CRISTA Rx#: [id number] Output: Urine (ml) 2750 3000 Toilet 2750 3000 Other: Weight 160.7 kg 162.5 kg Number of Voids Toilet 3 1 Result Diagrams: 06/25/16 06:30 04/11/17 05:25 - Physical Exam Constitutional: obese Eyes: anicteric sclera Ears, Nose, Mouth, Throat: moist mucous membranes Cardiovascular: regular rate and rhythm, no murmurs Respiratory: clear to auscultate bilat Gastrointestinal: normoactive bowel sounds, no tenderness, no masses Skin: other (severe bilateral LE edema with chronic venous stasis changes) Neurologic: AAOx3 Psychiatric: not anxious ICD10 Worksheet Patient Problems: Problems Problem Status Onset CHF (congestive heart failure) Acute Cardiomegaly Acute Afib - Atrial fibrillation Acute CHF (congestive heart failure) Acute Chest pain Acute
[2016-06-27] MEDS: ACETAMINOPHEN 325 MG TAB PO PRN ×2 (13:52→21:08)
[2016-06-27] MEDS ORDERED: D50W 25 GM/50 ML SYR IVP PRN (15:24)
--- NOTE | 2016-06-27 15:26 | HOSPPROG ---
Hospitalist Progress Note Assessment/Plan: Tigist Quinn is a 60 y/o female w morbid obesity who presented with acute on chronic CHF. She was admitted to the hospital from [facility] for being fluid overloaded. Today is my first encounter with the patient/chart reviewed. acute CHF, diastolic, mostly R sided sx - Lasix gtt on hold given rising cr 14 L neg thus far lasix gtt on hold given DELMI and then contrast lupus anticoagulant, hx arterial thrombosis - take warfarin (on HOLD) - was being bridged w Lovenox - now on heparin gtt follow inr daily restart heparin at 5p today (06/27) hyponatremia: follow daily up and down hx of 2 strokes due to the above -no residual renal insufficiency as above DM2 - high insulin doses - glucoses are elevated, follow for now without insulin changes -change to ADA diet/ cardiac diet unusual insulin regiment noted kelflex therapy: this is prophyaxis for recurrent cellulitis that may actually be venous stasis paroxysmal a-fib: sinus now; AC as above, diltiazem HEIDI - CPAP morbid obesity with a BMI of 55 dispo: inpatient Subjective: case discussed w dr paez Objective: Vital Signs Temp Pulse Resp BP Pulse Ox 36.6 C 73 14 135/61 H 96 06/27/16 13:44 06/27/16 14:30 06/27/16 13:44 06/27/16 14:30 06/27/16 13:44 Laboratory Results 06/25/16 06:30 06/27/16 05:25 06/26/16 06/27/16 06/28/16 05:59 05:59 05:59 Intake Total 2047 3752 183.2 Output Total 2750 3000 1200 Balance -703 752 -1016.8 PT 14.7 SEC (12.0-15.0) 06/27/16 05:25 INR 1.15 (0.83-1.16) 06/27/16 05:25 ICD10 Worksheet Patient Problems: Problems Problem Status Onset CHF (congestive heart failure) Acute Cardiomegaly Acute Afib - Atrial fibrillation Acute CHF (congestive heart failure) Acute Chest pain Acute
[2016-06-27] MEDS: WARFARIN SODIUM 5 MG TAB PO SCH (17:05)
[2016-06-27] MEDS ORDERED: NS 1,000 ML IV SCH (18:00)
[2016-06-27 18:09] LABS: POTASSIUM 4.8 mEq/L (3.5-5.2)
[2016-06-27] MEDS: OLANZapine 2.5 MG TAB PO SCH (21:07)
[2016-06-27] MEDS: PANTOPRAZOLE SODIUM 40 MG TAB PO SCH (21:08)
[2016-06-27] MEDS ORDERED: DOCUSATE SODIUM 100 MG CAP PO PRN (21:35)
[2016-06-28] MEDS: HEPARIN/DEXTROSE 500 ML IV SCH ×2 (03:30→15:15)
[2016-06-28 06:22] LABS: INR 1.1 (0.83-1.16); PROTIME(PATIENT) 14.1 SEC (12.0-15.0)
[2016-06-28 06:57] LABS: ANION GAP 10 mEq/L (8-16); CALCIUM 9.2 mg/dL (8.5-10.4); CARBON DIOXIDE 28 mEq/l (22-31); CHLORIDE 101 mEq/L (97-110); CREATININE 1.1 mg/dL (0.6-1.0); GLOMERULAR FILTRATION RATE 50; GLUCOSE 232 mg/dL (70-100); MAGNESIUM 2.6 mg/dL (1.6-2.3); POTASSIUM 4.9 mEq/L (3.5-5.2); SODIUM 139 mEq/L (134-144)
[2016-06-28] MEDS: INSULIN REGULAR HUMAN 100 UNIT/ML SC SCH ×2 (08:14→18:16)
[2016-06-28] MEDS: DILTIAZEM CD 180 MG CAP PO SCH (08:15)
[2016-06-28] MEDS: CEPHALEXIN 500 MG CAP PO SCH ×2 (08:15→21:09)
[2016-06-28] MEDS: INSULIN LISPRO 100 UNIT/ML SC SCH ×4 (08:15→21:09)
[2016-06-28] MEDS: GABAPENTIN 300 MG CAP PO SCH ×3 (08:15→21:10)
[2016-06-28] MEDS: CHOLECALCIFEROL VIT D3 1,000 UNITS TAB PO SCH (08:16)
[2016-06-28] MEDS: PARoxetine HCL 20 MG TAB PO SCH (08:16)
[2016-06-28] MEDS ORDERED: FUROSEMIDE 100 MG in D5W 100 ML IV SCH (10:00)
--- NOTE | 2016-06-28 12:26 | SOAPPROG ---
LUCIO Progress Note Assessment/Plan: Assessment: 60 y/o woman with chronic morbid obesity and acute on chronic diastolic CHF mostly RV related. No more CP. Weight on admission around 370lbs now 350lbs. L/ R cardiac cath shows mild non-obstructive CAD with biventricular dysfunction with PCWP 28 and CVP 22. Kidney function back to baseline. She feels better than a week ago when admitted. We had a long discussion about her morbid obesity and it's lifethreatening consequences. I brought up gastric bypass surgery. Her stock sheets cleaner inspector had suggested that in past but pt not interested currently. PLAN: 1)stop lasix gtt. 2)start Demadex 60mg PO BID 3)losartan 25mg po daily. 4)maybe home tom or sunday if weight stable or decreasing and renal function stable. 5)encourage pt to rediscuss gastric stapling or gastric bypass surgery with her PCP and/or stock sheets cleaner inspector upon discharge as her morbid obesity is lifethreatening. 06/28/16 12:22 Subjective: feels okay. DICKERSON at 20ft. Denies CP, palpitations, PND or near syncope. Denies fevers. Objective: Vital Signs Temp Pulse Resp BP Pulse Ox 36.6 C 82 16 129/61 H 90 L 06/28/16 07:34 06/28/16 07:34 06/28/16 07:34 06/28/16 07:34 06/28/16 07:34 Laboratory Results 06/25/16 06:30 06/28/16 06:00 06/27/16 06/28/16 06/29/16 05:59 05:59 05:59 Intake Total 3752 2513.2 Output Total 3000 3000 1600 Balance 752 -486.8 -1600 PT 14.1 SEC (12.0-15.0) 06/28/16 06:00 INR 1.10 (0.83-1.16) 06/28/16 06:00 Physical Exam - Physical Exam General Appearance: alert, obese EENT: PERRL/EOMI Neck: non-tender Respiratory: lungs clear Cardiac/Chest: regular rate, rhythm, gallop, JVD, systolic murmur Peripheral Pulses: 1+: femoral (R), femoral (L), dorsalis-pedis (R), dorsalis- pedis (L), 2+: carotid (R), carotid (L) Abdomen: soft, distended Skin: warm/dry Extremities: pedal edema (3+ bilateral to level above knees) Neuro/Psych: alert ICD10 Worksheet Patient Problems: Problems Problem Status Onset CHF (congestive heart failure) Acute Cardiomegaly Acute Afib - Atrial fibrillation Acute CHF (congestive heart failure) Acute Chest pain Acute
[2016-06-28] MEDS: LOSARTAN POTASSIUM 25 MG TAB PO SCH (12:49)
[2016-06-28] MEDS: TORSEMIDE 20 MG TAB PO SCH ×2 (12:49→21:09)
--- NOTE | 2016-06-28 15:16 | HOSPPROG ---
Hospitalist Progress Note Assessment/Plan: Tigist Quinn is a 60 y/o female w morbid obesity who presented with acute on chronic CHF. She was admitted to the hospital from [facility] for being fluid overloaded. Today is my first encounter with the patient/chart reviewed. acute CHF, diastolic, mostly R sided sx - Lasix gtt on hold given rising cr 16 L neg thus far transitioned to po torsemide lupus anticoagulant, hx arterial thrombosis - take warfarin (on HOLD) - was being bridged w Lovenox - now on heparin gtt follow inr daily heparin restarted would dc on lmwh bridge given apparent h/o arterial emboli hyponatremia: follow daily up and down hx of 2 strokes due to the above -no residual renal insufficiency as above DM2 - high insulin doses - glucoses are elevated, follow for now without insulin changes -change to ADA diet/ cardiac diet unusual insulin regiment noted kelflex therapy: this is prophyaxis for recurrent cellulitis that may actually be venous stasis paroxysmal a-fib: sinus now; AC as above, diltiazem HEIDI - CPAP morbid obesity with a BMI of 55 dispo: inpatient Subjective: tele: no events (interp by me). case d/w dr arguello Objective: Vital Signs Temp Pulse Resp BP Pulse Ox 36.8 C 85 15 135/98 H 92 06/28/16 12:00 06/28/16 12:00 06/28/16 12:00 06/28/16 12:00 06/28/16 12:00 Laboratory Results 06/25/16 06:30 06/28/16 06:00 06/27/16 06/28/16 06/29/16 05:59 05:59 05:59 Intake Total 3752 2513.2 Output Total 3000 3000 2600 Balance 752 -486.8 -2600 PT 14.1 SEC (12.0-15.0) 06/28/16 06:00 INR 1.10 (0.83-1.16) 06/28/16 06:00 - Physical Exam Constitutional: no apparent distress, appears nourished Eyes: PERRL, anicteric sclera Ears, Nose, Mouth, Throat: moist mucous membranes, hearing normal Cardiovascular: regular rate and rhythym, no murmur, rub, or gallop Respiratory: no respiratory distress, no rales or rhonchi Gastrointestinal: normoactive bowel sounds, soft, non-tender abdomen Genitourinary: No gaitan in urethra Skin: warm, normal color, other (chronic venous stasis changes w sig edema) Musculoskeletal: full muscle strength Neurologic: AAOx3 ICD10 Worksheet Patient Problems: Problems Problem Status Onset CHF (congestive heart failure) Acute Cardiomegaly Acute Afib - Atrial fibrillation Acute CHF (congestive heart failure) Acute Chest pain Acute
--- NOTE | 2016-06-28 17:00 | WOCRNPDOC ---
WOCRN Advanced Assessment Note - Skin Integrity Problem, Advanced Assess Right Lower Leg Venous Stasis Ulcer Dressing Type: Layne, Mepilex Dressing Description: Clean/Dry, Intact Exudate Amount: Minimal Exudate Characteristic(s): Serosanguinous Integumentary Issue Intervention: Dressing Changed, Dressing Initialed & Dated Natalie Wound Tissue: Macerated, Lipodermatosclerosis, Hemosiderin Staining, Venous Dermatitis, Crusted, Lichenification Wound Bed Color: Red Wound Bed Constitution: Granulation Tissue Wound Edges: Attached Pulse Location & Description: 1+ DP bilaterally Extremity Temperature: Warm Lymphedema Present: Yes Peripheral Edema Location & Description: 2+ pitting Skin Integrity Problem Comment: Cleaned with ns and gauze. skin prep natalie wound and honey gauze to wound bed. Covered with mepilex non border foam and wrapped with layne, then kerlix then netting. Extensive education on dressing changes, wound care and plan of care. Encouraged patient to follow up at outpatient wound healing center. Student DIYA Eli in room and assited with care. Will follow up in one week.
[2016-06-28] MEDS: WARFARIN SODIUM 5 MG TAB PO SCH (17:16)
[2016-06-28] MEDS: OLANZapine 2.5 MG TAB PO SCH (21:08)
[2016-06-28] MEDS: ACETAMINOPHEN 325 MG TAB PO PRN (21:08)
[2016-06-28] MEDS: PANTOPRAZOLE SODIUM 40 MG TAB PO SCH (21:09)
[2016-06-29 05:54] LABS: HEMOGLOBIN 10.9 g/dL (12.6-16.3); MEAN CELL HEMOGLOBIN 30.6 pg (27.9-34.1); MEAN CELL VOLUME 92.7 fL (81.5-99.8); RED BLOOD CELL COUNT 3.56 10^6/uL (4.18-5.33); RED CELL DISTRIBUTION WIDTH 15.7 % (11.5-15.2)
[2016-06-29 06:06] LABS: INR 1.15 (0.83-1.16); PROTIME(PATIENT) 14.7 SEC (12.0-15.0)
[2016-06-29 06:08] LABS: ANION GAP 11 mEq/L (8-16); CALCIUM 9.2 mg/dL (8.5-10.4); CARBON DIOXIDE 30 mEq/l (22-31); CHLORIDE 98 mEq/L (97-110); CREATININE 1.2 mg/dL (0.6-1.0); GLOMERULAR FILTRATION RATE 46; GLUCOSE 141 mg/dL (70-100); MAGNESIUM 1.8 mg/dL (1.6-2.3); POTASSIUM 4.2 mEq/L (3.5-5.2); SODIUM 139 mEq/L (134-144)
[2016-06-29] MEDS: INSULIN LISPRO 100 UNIT/ML SC SCH ×2 (08:30→13:01)
[2016-06-29] MEDS: LOSARTAN POTASSIUM 25 MG TAB PO SCH (08:30)
[2016-06-29] MEDS: INSULIN REGULAR HUMAN 100 UNIT/ML SC SCH (08:30)
[2016-06-29] MEDS: GABAPENTIN 300 MG CAP PO SCH (08:31)
[2016-06-29] MEDS: PARoxetine HCL 20 MG TAB PO SCH (08:31)
[2016-06-29] MEDS: CEPHALEXIN 500 MG CAP PO SCH (08:31)
[2016-06-29] MEDS: CHOLECALCIFEROL VIT D3 1,000 UNITS TAB PO SCH (08:31)
[2016-06-29 08:32] VITALS: BP 159/78; PULSE 77
[2016-06-29] MEDS: TORSEMIDE 20 MG TAB PO SCH (08:32)
[2016-06-29] MEDS: DILTIAZEM CD 180 MG CAP PO SCH (08:32)
[2016-06-29] MEDS ORDERED: LOSARTAN POTASSIUM 25 MG TAB PO SCH (08:46)
[2016-06-29 08:47] VITALS: RESP 18; TEMP 97.9; O2SAT 92
[2016-06-29] MEDS ORDERED: LOSARTAN POTASSIUM 25 MG TAB PO ONE (09:00)
[2016-06-29] MEDS ORDERED: MAGNESIUM SULF 1 GM/DEXTROSE 100 ML IV ONE (09:13)
--- NOTE | 2016-06-29 09:13 | PDCARPN ---
Cardiology Progress Note Chief Complaint: [id number] DCHF/cor pulmonale Assessment/Plan: Assessment: 60 y/o F with chronic morbid obesity, [id number] diastolic CHF mostly RV related, severe PHTN, untreated HEIDI, DM, htn, lupus anticoagulant/araterial thromboses, chronic hypoxic respiratory failure, presented from our office with vol O/L. Weight on admission around 370lbs now 350lbs, having transitioned to oral Demadex yesterday. L/R cardiac cath this admission shows mild non- obstructive CAD with biventricular dysfunction with PCWP 28 and CVP 22 and severe PHTN. #. biventricular heart failure: weight and volume O/L improved weight stable on oral Demadex OK to d/c on orals with clinical follow up in 1-[address] Angel [facility] labs of [facility] prior ot OV #. HEIDI: we discussed the importance of CPAP compliance for treatment of her CHF #. morbid obesity: restated to her to consider gastric bypass as this significantly impacts her morbidity/mortality #. CAD: minimal #. severe PHTN: continue supplemental O2/CPAP and weight loss recommended started on Dilt CD #. htn: BP above goal increased dose of Losartan to 50 (was decreased in setting of DELMI) #. DELMI/CKD: at her baseline currently at 1.2 #. DM: per hospitalists #. lupus anticoagulant resumed Warfarin will need ongoing bridging Plan: OK to d/c today or tomorrow from cardiology perspective with warfarin and bridging 06/29/16 09:00 Subjective: Feels improved. No further cp. Has questions about when to follow up, Magnesium , INR. Objective: Vital Signs (8 Hrs) Temp Pulse Resp BP Pulse Ox 06/29/16 08:32 77 159/78 H 06/29/16 08:30 159/78 H 06/29/16 08:00 97.9 F 101 H 18 159/78 H 92 06/29/16 04:00 97.8 F 75 16 141/60 H 96 Intake/Output (24 Hrs) 06/28/16 06/29/16 06/30/16 05:59 05:59 05:59 Intake Total 2513.2 1557 Output Total 3000 5100 Balance -486.8 -3543 Intake: Oral (ml) 850 975 IV Infused (ml) 1663.2 582 Heparin/Dextrose 500 ml @ 763.2 582 Per Protocol IV CONT CRISTA Rx#:[id number] Ns 1,000 ml @ 75 mls/hr 900 IV CONT CRISTA Rx#: [id number] Output: Urine (ml) 3000 5100 Bedpan 1000 800 Toilet 2000 4300 Other: Weight 160.8 kg 160.7 kg Output Comment Toilet darin blood on wipe ?hemmorhoids Number of Voids Toilet 1 1 Number of Stools Toilet 1 1 Result Diagrams: 06/29/16 05:40 06/29/16 05:40 Cardiac Labs: Laboratory Tests 06/29/16 05:40 NT-Pro-B Natriuret Pep 122 EK/5 ecg personally interpreted shows NSR Telemetry: SR Echocardiogram: EF 75%, hyperdynamic LV, RVSP 58 - Physical Exam Constitutional: no apparent distress, obese Eyes: PERRL Ears, Nose, Mouth, Throat: moist mucous membranes Cardiovascular: regular rate and rhythm, systolic murmur Respiratory: clear to auscultate bilat, reduced air movement Gastrointestinal: normoactive bowel sounds Skin: warm, erythema, other (edema present) Neurologic: AAOx3 Psychiatric: cooperative, interactive ICD10 Worksheet Patient Problems: Problems Problem Status Onset Chest pain Acute CHF (congestive heart failure) Acute Afib - Atrial fibrillation Acute CHF (congestive heart failure) Acute Cardiomegaly Acute
[2016-06-29] MEDS ORDERED: ENOXAPARIN 150 MG/ML SYR SC SCH (10:30)
--- NOTE | 2016-06-29 10:32 | PDIAF ---
- Diagnosis Diagnosis: systolic heart failure, DM Code Status: Full Code - Medication Management Discharge Medications: Medications to Continue on Transfer Acetaminophen [Tylenol 325mg (*)] 650 mg PO BID 06/21/16 [Last Taken 06/21/16] Cephalexin [Keflex (*)] 500 mg PO QID PRN 06/21/16 [Last Taken 06/21/16] Cholecalciferol Vit D3 [Vitamin D3 (*)] 5,000 units PO DAILY 06/21/16 [Last Taken 06/21/16] Diltiazem HCl [Cartia XT 180mg] 180 mg PO DAILY 06/21/16 [Last Taken 06/21/16] Gabapentin [Neurontin 300 MG (*)] 300 mg PO TID 06/21/16 [Last Taken 06/21/16] Herbals/Supplements -Info Only 1 ea PO DAILY 06/21/16 [Last Taken Unknown] Insulin Regular Human [Humulin R 100 units/ml (*)] 110 unit SQ BIDMEAL 06/21/16 [Last Taken 06/21/16] OLANZapine [ZyPREXA 2.5 mg (*)] 7.5 mg PO HS 06/21/16 [Last Taken 06/20/16] Omeprazole [Prilosec 20 mg] 20 mg PO HS 06/21/16 [Last Taken 06/20/16] PARoxetine HCL [Paxil 20mg (*)] 40 mg PO DAILY 06/21/16 [Last Taken 06/21/16] Warfarin Sodium [Coumadin 5MG (*)] 5 mg PO SUMOTUTHFRSA@06/21/16 [Last Taken 06/20/16] Warfarin Sodium [Coumadin 7.5MG (*)] 7.5 mg PO WE@06/21/16 [Last Taken ] Enoxaparin [Lovenox 150mg (*)] 150 mg SC BID #14 syr 06/29/16 [Last Taken Unknown] Losartan Potassium [Cozaar 50 mg (*)] 50 mg PO DAILY #30 tab 06/29/16 [Last Taken Unknown] Torsemide [Demadex] 60 mg PO BID #180 tab 06/29/16 [Last Taken Unknown] Discharge Medications: Refer to the Discharge Home Medication list for PRN reason. PICC Care - Routine: N/A - Orders Services needed: Home Care, Registered Nurse, Physical Therapy, Occupational Therapy Home Care Face to Face: I certify that this patient was under my care and that I had the required [id number] encounter meeting the encounter requirements on the discharge day. My findings support the fact that the patient is homebound as defined in CMS Chapter 7 Medicare Benefits Manual 30.1.1, The condition of the patient is such that there exists a normal inability to leave home and consequently, leaving home would require a considerable and taxing effort. Diet Recommendation: cardiac -low fat low salt, ADA 2200 consistent carb Weigh Patient: daily Wound Care Instructions: Change to RLE q4 d and PRN drainage/impaired dressing: Apply Atractain Cream to intact skin on bilateral lower legs and feet daily except between toes. 1. Cleanse w/NS flush and gauze. Pat dry. 2. Apply skin prep to periwound. 3. Cut honey gauze to fit into wound bed. 4. Cover with then Mepilex or other non-bordered foam. 5. Secure with dinorah wrap. May use tubigrip for additional support. - Labs/Radiology BMP Date: 07/03/16 PT/INR Date: 07/03/16 - Follow Up Care Current Providers and Referrals: Dulce Maria Black MD [Primary Care Provider] - As per Instructions Esteban Angel MD [Medical Doctor] -
--- NOTE | 2016-06-29 10:33 | PDIAF ---
- Diagnosis Diagnosis: systolic heart failure, DM Code Status: Full Code - Medication Management Discharge Medications: Medications to Continue on Transfer Acetaminophen [Tylenol 325mg (*)] 650 mg PO BID 06/21/16 [Last Taken 06/21/16] Cephalexin [Keflex (*)] 500 mg PO QID PRN 06/21/16 [Last Taken 06/21/16] Cholecalciferol Vit D3 [Vitamin D3 (*)] 5,000 units PO DAILY 06/21/16 [Last Taken 06/21/16] Diltiazem HCl [Cartia XT 180mg] 180 mg PO DAILY 06/21/16 [Last Taken 06/21/16] Gabapentin [Neurontin 300 MG (*)] 300 mg PO TID 06/21/16 [Last Taken 06/21/16] Herbals/Supplements -Info Only 1 ea PO DAILY 06/21/16 [Last Taken Unknown] Insulin Regular Human [Humulin R 100 units/ml (*)] 110 unit SQ BIDMEAL 06/21/16 [Last Taken 06/21/16] OLANZapine [ZyPREXA 2.5 mg (*)] 7.5 mg PO HS 06/21/16 [Last Taken 06/20/16] Omeprazole [Prilosec 20 mg] 20 mg PO HS 06/21/16 [Last Taken 06/20/16] PARoxetine HCL [Paxil 20mg (*)] 40 mg PO DAILY 06/21/16 [Last Taken 06/21/16] Warfarin Sodium [Coumadin 5MG (*)] 5 mg PO SUMOTUTHFRSA@06/21/16 [Last Taken 06/20/16] Warfarin Sodium [Coumadin 7.5MG (*)] 7.5 mg PO WE@06/21/16 [Last Taken ] Enoxaparin [Lovenox 150mg (*)] 150 mg SC BID #14 syr 06/29/16 [Last Taken Unknown] Losartan Potassium [Cozaar 50 mg (*)] 50 mg PO DAILY #30 tab 06/29/16 [Last Taken Unknown] Torsemide [Demadex] 60 mg PO BID #180 tab 06/29/16 [Last Taken Unknown] Discharge Medications: Refer to the Discharge Home Medication list for PRN reason. PICC Care - Routine: N/A - Orders Services needed: Home Care, Registered Nurse, Physical Therapy, Occupational Therapy Home Care Face to Face: I certify that this patient was under my care and that I had the required [id number] encounter meeting the encounter requirements on the discharge day. My findings support the fact that the patient is homebound as defined in CMS Chapter 7 Medicare Benefits Manual 30.1.1, The condition of the patient is such that there exists a normal inability to leave home and consequently, leaving home would require a considerable and taxing effort. Diet Recommendation: cardiac -low fat low salt, ADA 2200 consistent carb Weigh Patient: daily Wound Care Instructions: Change to RLE q4 d and PRN drainage/impaired dressing: Apply Atractain Cream to intact skin on bilateral lower legs and feet daily except between toes. 1. Cleanse w/NS flush and gauze. Pat dry. 2. Apply skin prep to periwound. 3. Cut honey gauze to fit into wound bed. 4. Cover with then Mepilex or other non-bordered foam. 5. Secure with dinorah wrap. May use tubigrip for additional support. - Labs/Radiology BMP Date: 07/03/16 (results to Dr. Angel and Dr. Black) PT/INR Date: 07/03/16 (Results to Dr. Black) - Follow Up Care Current Providers and Referrals: Esteban Angel MD [Medical Doctor] - Dulce Maria Black MD [Primary Care Provider] - As per Instructions
--- NOTE | 2016-06-29 10:50 | PDIAF ---
- Diagnosis Diagnosis: systolic heart failure, DM Code Status: Full Code - Medication Management Discharge Medications: Medications to Continue on Transfer Acetaminophen [Tylenol 325mg (*)] 650 mg PO BID 06/21/16 [Last Taken 06/21/16] Cephalexin [Keflex (*)] 500 mg PO QID PRN 06/21/16 [Last Taken 06/21/16] Cholecalciferol Vit D3 [Vitamin D3 (*)] 5,000 units PO DAILY 06/21/16 [Last Taken 06/21/16] Diltiazem HCl [Cartia XT 180mg] 180 mg PO DAILY 06/21/16 [Last Taken 06/21/16] Gabapentin [Neurontin 300 MG (*)] 300 mg PO TID 06/21/16 [Last Taken 06/21/16] Herbals/Supplements -Info Only 1 ea PO DAILY 06/21/16 [Last Taken Unknown] Insulin Regular Human [Humulin R 100 units/ml (*)] 110 unit SQ BIDMEAL 06/21/16 [Last Taken 06/21/16] OLANZapine [ZyPREXA 2.5 mg (*)] 7.5 mg PO HS 06/21/16 [Last Taken 06/20/16] Omeprazole [Prilosec 20 mg] 20 mg PO HS 06/21/16 [Last Taken 06/20/16] PARoxetine HCL [Paxil 20mg (*)] 40 mg PO DAILY 06/21/16 [Last Taken 06/21/16] Warfarin Sodium [Coumadin 5MG (*)] 5 mg PO SUMOTUTHFRSA@06/21/16 [Last Taken 06/20/16] Warfarin Sodium [Coumadin 7.5MG (*)] 7.5 mg PO WE@21 06/21/16 [Last Taken ] Enoxaparin [Lovenox 150mg (*)] 150 mg SC BID #14 syr 06/29/16 [Last Taken Unknown] Losartan Potassium [Cozaar 50 mg (*)] 50 mg PO DAILY #30 tab 06/29/16 [Last Taken Unknown] Spironolactone [Aldactone 25 MG (*)] 12.5 mg PO DAILY #30 tab 06/29/16 [Last Taken Unknown] Torsemide [Demadex] 60 mg PO BID #180 tab 06/29/16 [Last Taken Unknown] Discharge Medications: Refer to the Discharge Home Medication list for PRN reason. PICC Care - Routine: N/A - Orders Services needed: Home Care, Registered Nurse, Physical Therapy, Occupational Therapy Home Care Face to Face: I certify that this patient was under my care and that I had the required [id number] encounter meeting the encounter requirements on the discharge day. My findings support the fact that the patient is homebound as defined in CMS Chapter 7 Medicare Benefits Manual 30.1.1, The condition of the patient is such that there exists a normal inability to leave home and consequently, leaving home would require a considerable and taxing effort. Diet Recommendation: cardiac -low fat low salt, ADA 2200 consistent carb Weigh Patient: daily Wound Care Instructions: Change to RLE q4 d and PRN drainage/impaired dressing: Apply Atractain Cream to intact skin on bilateral lower legs and feet daily except between toes. 1. Cleanse w/NS flush and gauze. Pat dry. 2. Apply skin prep to periwound. 3. Cut honey gauze to fit into wound bed. 4. Cover with then Mepilex or other non-bordered foam. 5. Secure with dinorah wrap. May use tubigrip for additional support. - Labs/Radiology BMP Date: 07/03/16 (results to Dr. Angel and Dr. Black) PT/INR Date: 07/03/16 (Results to Dr. Black) - Follow Up Care Current Providers and Referrals: Esteban Angel MD [Medical Doctor] - Dulce Maria Black MD [Primary Care Provider] - As per Instructions
--- NOTE | 2016-06-29 11:30 | GDS ---
[f rep st] DISCHARGE SUMMARY DISCHARGE DIAGNOSES: 1. Acute on chronic diastolic heart failure. 2. Severe pulmonary hypertension. 3. Obstructive sleep apnea. 4. Lupus anticoagulant with history of arterial thrombosis. 5. Chronic anticoagulation with subtherapeutic INR, discharging on bridging therapy with Lovenox. 6. Acute kidney injury, improved. 7. Diabetes mellitus type 2. 8. Paroxysmal atrial fibrillation, currently in sinus rhythm. 9. History of CVA, likely related to above. 10. Hyponatremia, resolved. 11. Bilateral lower extremity edema in the setting of biventricular heart failure. 12. Chronic right lower extremity ulcer without evidence of infection. 13. Severe obesity with a BMI of 55. This complicates all aspects of care. CONSULTANTS: Dr. Esteban Angel, Cardiology. IMAGING STUDIES/PROCEDURES: 1. Echocardiogram, June 26, 2016, showed mild left ventricular hypertrophy with ejection fraction of 70% to 75%, right ventricular systolic pressure of 58, and Doppler evidence of moderate pulmonary hypertension. 2. PICC line placement, June 21, 2016. 3. Left and right heart catheterization, June 27, 2016, by Dr. Sean Mckeon, showed normal left ventricular systolic function, minimal coronary atherosclerosis and severe pulmonary hypertension. HISTORY: For details, please see dictated history and physical dated June 21, 2016. In brief, the patient is a 60-year-old female with a history of severe obesity, diastolic heart failure and sleep apnea, who presented to the hospital for direct admission from the [facility] due to volum e overload. She had apparently gained 60 pounds over the past 6 months with a reported dry weight o f 310 pounds. She was admitted to the hospital for diuresis and management of her acute on chronic heart failure. HOSPITAL COURSE: The patient was admitted to the telemetry unit. She was started on a Lasix drip a nd a fluid restriction. She diuresed a total of 11 kilos and was transitioned to oral torsemide. H er rate remained stable on this. This will replace her outpatient Lasix at discharge. She will hav e followup with Dr. Angel in the heart failure clinic. Her creatinine rasheed to 2.6 during this hospi talization and has since recovered. Her creatinine at discharge is 1.2. She will need a followup b asic metabolic panel as well as an INR in 3-4 days, with close monitoring of her daily weights. She was noted to have chronic lower extremity edema with chronic right lower extremity wound. Wound ca re evaluated this, and it is recommended she continue to have q.4 day dressing changes. Home care i s ordered, and wound care instructions are provided. With respect to her lupus anticoagulant, her C oumadin was initially held in preparation for a left-right heart cath, which she underwent on June 27, 2016. She was bridged with heparin drip, and her Coumadin was held for a total of 5 days. At t he time of discharge, her heparin drip was transitioned to Lovenox. Her INR remained subtherapeutic . Patient will undergo Lovenox teaching and will be discharged on bridging therapy with Lovenox unt il her INR is therapeutic given her history of arterial thrombosis. With respect to her diabetes, she was noted to be on an unusual insulin regimen at admission using r egular insulin 110 units twice daily with meals and no basal insulin. She was continued on her usua l outpatient insulin regimen. Her blood sugar at discharge is 190. I recommend she follow up with her primary care physician for referral to an director of research center for ongoing insulin management. DISPOSITION: Patient is discharged home in stable condition. DISCHARGE MEDICATIONS: Please see [email or web address] for complete updated outpatient medication list. New medications on discharge include Lovenox 150 mg subcutaneous b.i.d., #14, no refills; losartan 5 0 mg p.o. daily, #30, no refills; and torsemide 60 mg p.o. b.i.d., #180, no refills. She will ellie nue all of her medications as prescribed. Discontinued medications include ibuprofen, spironolactone and Lasix. As above, her losartan dose i s decreased, and this may need to be up titrated in the outpatient setting. FOLLOWUP: 1. Basic metabolic panel and INR on July 03, 2016. Results to Dr. Angel and Dr. Black. 2. Lovenox will need to be discontinued once her INR is greater than 2. This will be deferred to h er primary care physician. 3. Dr. Esteban Angel 1-2 weeks in the heart failure clinic at [facility]. 4. Dr. Dulce Maria Black, primary care physician, in 3-5 days. /[id number]/MODL
[2016-06-29] MEDS: ACETAMINOPHEN 325 MG TAB PO PRN (14:15)
[2016-06-29] MEDS ORDERED: WARFARIN SODIUM 5 MG TAB PO SCH (21:00)
[2016-06-30] MEDS ORDERED: LOSARTAN POTASSIUM 50 MG TAB PO SCH (09:00)
[2016-07-05] MEDS ORDERED: WARFARIN SODIUM 7.5 MG TAB PO SCH (21:00)
== END 2016-06-29 15:20 | disposition home health service (06) | DRG 287 ==
LOC: F2W 16:57
PROVIDERS: ADMIT Internal Medicine; ATTEND Internal Medicine
PROC: 02HV33Z Insertion of Infusion Device into Superior Vena Cava, Percutaneous Approach (ICD-10-PCS; 2016-06-21)
PROC: 4A023N8 Measurement of Cardiac Sampling and Pressure, Bilateral, Percutaneous Approach (ICD-10-PCS; principal; 2016-06-27)
PROC: B2111ZZ Fluoroscopy of Multiple Coronary Arteries using Low Osmolar Contrast (ICD-10-PCS; principal; 2016-06-27)
PROC: B2151ZZ Fluoroscopy of Left Heart using Low Osmolar Contrast (ICD-10-PCS; principal; 2016-06-27)
DX: I50.33 Acute on chronic diastolic (congestive) heart failure (principal); N17.9 Acute kidney failure, unspecified; Z68.43 Body mass index [BMI] 50.0-59.9, adult; E87.1 Hypo-osmolality and hyponatremia; D68.62 Lupus anticoagulant syndrome; J96.11 Chronic respiratory failure with hypoxia; I27.2 Other secondary pulmonary hypertension; G47.33 Obstructive sleep apnea (adult) (pediatric); I83.018 Varicose veins of right lower extremity with ulcer other part of lower leg; E11.9 Type 2 diabetes mellitus without complications; I48.0 Paroxysmal atrial fibrillation; E66.01 Morbid (severe) obesity due to excess calories; Z86.73 Personal history of transient ischemic attack (TIA), and cerebral infarction without residual deficits; Z79.01 Long term (current) use of anticoagulants; Z79.4 Long term (current) use of insulin
CPT/HCPCS: 85520-90; 96374; 97116-GP; 97162-GP; 97530-GP; C1751; C1760; J1200; J1205; J1644; J1650; J1815; J2250; J3475; Q9967

== ENCOUNTER 2017-01-26 15:04 | Emergency (ER) | payer OTHER, MEDICAID ==
--- NOTE | 2017-01-26 16:42 | EDPHY ---
H & P Time Seen by Provider: 01/26/17 16:22 HPI/ROS: CHIEF COMPLAINT: Low blood pressure and shaky HISTORY OF PRESENT ILLNESS: Patient has a history of congestive heart failure and had her Demadex diuretic increased to 80 mg twice a day on last Sunday by her building wrecker Dr. Esteban Angel. She was at her conduit installer today and had serial blood pressures of 88/50 and was sent to the emergency department. Only complaint today she feels a little bit shakier than usual. She feels just a little more dizzy with standing. She does not have the complaint today of any syncope or palpitations or chest pain or shortness of breath. She has chronic lower extremity swelling which is unchanged from usual. REVIEW OF SYSTEMS: Eye: no change in vision ENT: no sore throat Cardiac: no chest pain or syncope Pulmonary: no cough or SOB Abdomen: no vomiting, diarrhea, abdominal pain Musculoskeletal: Lower extremity swelling, stable per the patient. Skin: Venous stasis changes both lower extremities Neuro: no headache Constitutional: no fever : Last urinated this morning A comprehensive 10 point review of systems is otherwise negative aside from elements mentioned in the history of present illness. PAST MEDICAL HISTORY: Includes diabetes, asthma, pulmonary hypertension, DVT with lupus anticoagulant. Depression, chronic kidney disease, CHF. Social history: Here with and grandson General Appearance: Alert and conversant, cooperative. Eyes: No scleral icterus. ENT, Mouth: Normal mucous membranes. Respiratory: Normal respiratory effort, breath sounds equal, lungs are clear to auscultation. Cardiovascular: Regular rate and rhythm. Gastrointestinal: Abdomen is soft and non tender. Neurological: Alert and oriented x3. Normally conversant. Face symmetric, normal movement and sensation in all extremities. Skin: Bilateral venous stasis changes both legs. Musculoskeletal: 4+ bilateral peripheral edema. Psychiatric: Not agitated. Emergency Department course/MDM: 1851: Results discussed. Creatinine is at baseline range, her electrolytes are in the range of her typical presentation. Patient did not have hypotension in the emergency department. She would like to go home which I think is reasonable. Smoking Status: Never smoked Constitutional: Initial Vital Signs Temperature (C) 37.2 C 01/26/17 15:07 Heart Rate 102 H 01/26/17 15:07 Respiratory Rate 18 01/26/17 15:07 Blood Pressure 130/64 H 01/26/17 15:07 O2 Sat (%) 91 L 01/26/17 15:07 O2 Delivery Mode Nasal Cannula O2 (L/minute) 0.5 Allergies/Adverse Reactions: erythromycin base [Erythromycin Base] Allergy (Intermediate, Verified 01/26/17 15:06) Rash Penicillins Allergy (Intermediate, Verified 01/26/17 15:06) Rash Sulfa (Sulfonamide Antibiotics) [Sulfa(Sulfonamide Antibiotics)] Allergy ( Intermediate, Verified 01/26/17 15:06) Rash pineapple [Pineapple] Allergy (Verified 01/26/17 15:06) most abx except 3rd gen. cephlaspor Allergy (Intermediate, Uncoded 02/25/15 13: 36) narcotics Allergy (Uncoded 02/25/15 13:36) make her angry Home Medications: Medication Instructions Recorded Diltiazem HCl [Cartia XT 180mg] 180 mg PO DAILY 06/21/16 Gabapentin [Neurontin 300 MG (*)] 300 mg PO TID 06/21/16 OLANZapine [ZyPREXA 2.5 mg (*)] 7.5 mg PO HS 06/21/16 PARoxetine HCL [Paxil 20mg (*)] 40 mg PO DAILY 06/21/16 Warfarin Sodium [Coumadin 5MG (*)] 5 mg PO SUMOTUTHFRSA@21 06/21/16 Losartan Potassium [Cozaar 50 mg 50 mg PO DAILY #30 tab 06/29/16 (*)] Spironolactone [Aldactone 25 MG 12.5 mg PO DAILY #30 tab 06/29/16 (*)] Insulin Aspart [novoLOG] unit SC AC 01/26/17 Metolazone [Zaroxolyn 5MG (*)] 5 mg PO 01/26/17 Potassium Chloride [K-Tab ER] 40 meq PO 01/26/17 Pravastatin Sodium [Pravachol] 40 mg PO 01/26/17 Torsemide [Demadex] 80 mg PO BID 01/26/17 traMADol [Ultram 50 mg (*)] 50 mg PO Q4 01/26/17 Medical Decision Making - Diagnostics EKG Interpretation: 12-lead EKG interpreted by me; official reading is in trace master. My interpretation is sinus rhythm rate 90 normal intervals and no ischemic changes. Differential Diagnosis: Differential for low blood pressure considered including but not limited to ACS or LA, dehydration, medication side effect, hyponatremia, renal failure. - Data Points Laboratory Results: Laboratory Results 01/26/17 17:00 01/26/17 17:00 01/26/17 01/26/17 01/26/17 17:00 17:00 17:00 WBC RBC Hgb Hct MCV MCH MCHC RDW Plt Count MPV Neut % (Auto) Lymph % (Auto) Stark % (Auto) Eos % (Auto) Baso % (Auto) Nucleat RBC Rel Count Absolute Neuts (auto) Absolute Lymphs (auto) Absolute Monos (auto) Absolute Eos (auto) Absolute Basos (auto) Absolute Nucleated RBC Immature Gran % Immature Gran # PT 22.7 SEC H SEC (12.0-15.0) INR 1.99 H (0.83-1.16) Turbidity TNP Sodium 133 mEq/L L mEq/L TNP (134-144) Potassium 3.9 mEq/L mEq/L TNP (3.5-5.2) Chloride 85 mEq/L L mEq/L TNP (97-110) Carbon Dioxide 28 mEq/l mEq/l TNP (22-31) Anion Gap 20 mEq/L H mEq/L TNP (8-16) BUN 87 mg/dL H mg/dL TNP (7-23) Creatinine 1.7 mg/dL H mg/dL TNP (0.6-1.0) Estimated GFR 30 TNP Glucose 316 mg/dL H mg/dL TNP (70-100) Calcium 9.4 mg/dL mg/dL TNP (8.5-10.4) Total Bilirubin 0.5 mg/dL mg/dL TNP (0.1-1.4) Conjugated Bilirubin TNP Unconjugated Bilirubin TNP AST 45 IU/L IU/L TNP (14-46) ALT 42 IU/L IU/L TNP (9-52) Alkaline Phosphatase 72 IU/L IU/L TNP (38-126) Troponin I 0.020 ng/mL ng/mL (0.000-0.034) NT-Pro-B Natriuret Pep 96 pg/mL pg/mL (0-125) Total Protein 8.1 g/dL g/dL TNP (6.3-8.2) Albumin 3.9 g/dL g/dL TNP (3.5-5.0) Specimen Hemolysis REJ 01/26/17 17:00 WBC 12.51 10^3/uL H 10^3/uL (3.80-9.50) RBC 4.41 10^6/uL 10^6/uL (4.18-5.33) Hgb 11.3 g/dL L g/dL (12.6-16.3) Hct 35.1 % L % (38.0-47.0) MCV 79.6 fL L fL (81.5-99.8) MCH 25.6 pg L pg (27.9-34.1) MCHC 32.2 g/dL L g/dL (32.4-36.7) RDW 18.8 % H % (11.5-15.2) Plt Count 306 10^3/uL 10^3/uL (150-400) MPV 9.8 fL fL (8.7-11.7) Neut % (Auto) 74.5 % H % (39.3-74.2) Lymph % (Auto) 14.2 % L % (15.0-45.0) Stark % (Auto) 10.5 % % (4.5-13.0) Eos % (Auto) 0.1 % L % (0.6-7.6) Baso % (Auto) 0.3 % % (0.3-1.7) Nucleat RBC Rel Count 0.2 % % (0.0-0.2) Absolute Neuts (auto) 9.32 10^3/uL H 10^3/uL (1.70-6.50) Absolute Lymphs (auto) 1.78 10^3/uL 10^3/uL (1.00-3.00) Absolute Monos (auto) 1.31 10^3/uL H 10^3/uL (0.30-0.80) Absolute Eos (auto) 0.01 10^3/uL L 10^3/uL (0.03-0.40) Absolute Basos (auto) 0.04 10^3/uL 10^3/uL (0.02-0.10) Absolute Nucleated RBC 0.02 10^3/uL H 10^3/uL (0-0.01) Immature Gran % 0.4 % % (0.0-1.1) Immature Gran # 0.05 10^3/uL 10^3/uL (0.00-0.10) PT INR Turbidity Sodium Potassium Chloride Carbon Dioxide Anion Gap BUN Creatinine Estimated GFR Glucose Calcium Total Bilirubin Conjugated Bilirubin Unconjugated Bilirubin AST ALT Alkaline Phosphatase Troponin I NT-Pro-B Natriuret Pep Total Protein Albumin Specimen Hemolysis Departure - Departure Disposition: Home, Routine, Self-Care Clinical Impression: hypotension,resolved Chronic kidney disease Qualifiers: Chronic kidney disease stage: unspecified stage Qualified Code(s): N18.9 - Chronic kidney disease, unspecified Condition: Good Instructions: Chronic Kidney Disease (ED) Referrals: Dulce Maria Black MD [Primary Care Provider] - As per Instructions
--- NOTE | 2017-01-26 16:53 | CPEKG ---
Heart Rate: 90 RR Interval: 667 P-R Interval: 180 QRSD Interval: 86 QT Interval: 376 QTC Interval: 460 P Bricelyn: 71 QRS Bricelyn: 2 T Wave Bricelyn: 47 EKG Severity - NORMAL ECG - EKG Impression: SINUS RHYTHM Electronically Signed By: Elbert Pastor 26-Jan-2017 17:11:56
[2017-01-26 17:05] LABS: HEMATOCRIT 35.1 % (38.0-47.0); HEMOGLOBIN 11.3 g/dL (12.6-16.3); RED BLOOD CELL COUNT 4.41 10^6/uL (4.18-5.33)
[2017-01-26 17:06] LABS: % IMMATURE GRANULYOCYTES 0.4 % (0.0-1.1); ABSOLUTE IMMATURE GRANULOCYTES 0.05 10^3/uL (0.00-0.10); ABSOLUTE NRBC COUNT 0.02 10^3/uL (0-0.01); ADD DIFF? NO; ADD MORPH? NO; ADD SCAN? NO; ATYPICAL LYMPHOCYTE FLAG 0 (0-99); FRAGMENT RBC FLAG 20 (0-99); LEFT SHIFT FLG 10 (0-99); LIPEMIA HEMOLYSIS FLAG 80 (0-99); MEAN CELL HEMOGLOBIN 25.6 pg (27.9-34.1); MEAN CELL HEMOGLOBIN CONCENTR. 32.2 g/dL (32.4-36.7); MEAN CELL VOLUME 79.6 fL (81.5-99.8); MEAN PLATELET VOLUME 9.8 fL (8.7-11.7); NRBC-AUTO% 0.2 % (0.0-0.2); PLATELET CLUMPS FLAG 70 (0-99); PLATELET COUNT 306 10^3/uL (150-400); RED CELL DISTRIBUTION WIDTH 18.8 % (11.5-15.2)
[2017-01-26 17:26] LABS: INR 1.99 (0.83-1.16); PROTIME(PATIENT) 22.7 SEC (12.0-15.0)
[2017-01-26 18:35] LABS: ALANINE AMINOTRANSFERASE 42 IU/L (9-52); ALBUMIN 3.9 g/dL (3.5-5.0); ALKALINE PHOSPHATASE 72 IU/L (38-126); ANION GAP 20 mEq/L (8-16); ASPARTATE AMINOTRANSFERASE 45 IU/L (14-46); BILIRUBIN,TOTAL 0.5 mg/dL (0.1-1.4); CALCIUM 9.4 mg/dL (8.5-10.4); CARBON DIOXIDE 28 mEq/l (22-31); CHLORIDE 85 mEq/L (97-110); CREATININE 1.7 mg/dL (0.6-1.0); GLOMERULAR FILTRATION RATE 30; GLUCOSE 316 mg/dL (70-100); POTASSIUM 3.9 mEq/L (3.5-5.2); SODIUM 133 mEq/L (134-144); TOTAL PROTEIN 8.1 g/dL (6.3-8.2)
[2017-01-26 19:09] VITALS: RESP 20
[2017-01-26 19:10] VITALS: BP 136/78; PULSE 91; TEMP 98.1; O2SAT 94
== END 2017-01-26 19:10 | disposition home or self-care (01) ==
DX: I95.9 Hypotension, unspecified (principal); N18.9 Chronic kidney disease, unspecified; E11.9 Type 2 diabetes mellitus without complications; J45.909 Unspecified asthma, uncomplicated; I50.9 Heart failure, unspecified; Z79.01 Long term (current) use of anticoagulants; Z79.4 Long term (current) use of insulin